=== PATIENT | male | born 1960 | race Caucasian/White ===

== ENCOUNTER → 2020-04-19 | Outpatient (CLI) | payer OTHER ==
[2020-04-20 09:06] LABS: RUBEOLA (MEASLES) IGG >300.0 AU/mL (Immune >16.4)
== END | disposition home or self-care (01) ==
LOC: LABPV 09:41
PROVIDERS: ATTEND Internal Medicine
DX: Z02.1 Encounter for pre-employment examination (principal)
CPT/HCPCS: 86706; 86735; 86762; 86765; 86787

== ENCOUNTER 2021-02-20 17:34 | Emergency (ER) | payer MEDICAID ==
[~2021-02-20] VITALS: Ht 170.2 cm; Wt 59.1 kg
[2021-02-20 18:50] LABS: BASOPHILS % (AUTO) 2.5 % (0.0-2.0); EOSINOPHILS % (AUTO) 6.5 % (1.0-6.0); HEMOGLOBIN 8.7 g/dL (13.5-17.5); LYMPHOCYTES # (AUTO) 1.2 K/uL (1.0-4.8); LYMPHOCYTES % (AUTO) 24.2 % (22.0-44.0); MEAN CORPUSCULAR HEMOGLOBIN 27.6 pg (26.0-34.0); MEAN CORPUSCULAR HGB CONC 33.5 G/dL (31.0-37.0); MEAN CORPUSCULAR VOLUME 83 fL (80-100); MONOCYTES # (AUTO) 0.5 K/uL (0.1-1.0); MONOCYTES % (AUTO) 9.8 % (2.0-9.0); NEUTROPHILS # (AUTO) 2.9 K/uL (1.8-7.7); PLATELET COUNT (AUTO) 258 K/uL (150-450); RED BLOOD CELL COUNT(AUTO) 3.15 MIL/uL (4.50-5.90); RED CELL DISTRIBUTION WIDTH 17.2 % (11.5-14.5)
[2021-02-20 19:14] LABS: CARBON DIOXIDE 30 mmol/L (22-29); CHLORIDE 85 mmol/L (98-107); CREATININE 0.69 mg/dL (0.60-1.30); GLOMERULAR FILTR. RATE CALC > 60 mL/min (>60); GLUCOSE,RANDOM 99 mg/dL (70-110); UREA NITROGEN, BLOOD 5 mg/dL (7-18)
[2021-02-20 19:15] LABS: ALANINE AMINOTRANSFERASE 14 U/L (12-78); ALBUMIN 3.2 g/dL (3.4-5.0); ALKALINE PHOSPHATASE 77 U/L (46-116); ASPARTATE AMINOTRANSFERASE 17 U/L (15-37); BILIRUBIN,TOTAL 0.2 mg/dL (0.1-1.0); CALCIUM, TOTAL 8.1 mg/dL (8.8-10.5); LIPASE 108 U/L (73-393); TOTAL PROTEIN, SERUM 6.2 g/dL (6.4-8.2)
[2021-02-20 19:29] VITALS: BP 140/78
[2021-02-20 19:48] LABS: POTASSIUM 4.5 mmol/L (3.5-5.1)
[2021-02-20 19:52] LABS: ANION GAP 3 mmol/L (8-16); SODIUM SERUM 118 mmol/L (136-145)
[2021-02-20 20:18] LABS: % IRON SATURATION 5.1 % (30-44)
[2021-02-20 20:29] LABS: FREE T4 (FREE THYROXINE) 1.05 ng/dL (0.76-1.46)
== END 2021-02-20 20:13 | disposition admitted as inpatient to this hospital (09) ==
LOC: EMS 17:36
DX: D64.9 Anemia, unspecified (principal); R00.2 Palpitations; E87.1 Hypo-osmolality and hyponatremia; F17.210 Nicotine dependence, cigarettes, uncomplicated
CPT/HCPCS: 71045; 80053; 83540; 83550; 83690; 84439; 84443; 84484; 85025; 93005; 99285; 36415-L1; 36415-TC

== ENCOUNTER 2021-02-23 16:21 | Inpatient (IN) | payer OTHER, MEDICAID ==
[~2021-02-23] VITALS: Ht 177.8 cm; Wt 76.0 kg
[2021-02-23] MEDS ORDERED: ONDANSETRON HCL 4 MG/2 ML VIAL IVP PRN (17:30)
[2021-02-23] MEDS ORDERED: SODIUM CHLORIDE 0.9% 1,000 ML IV ONE (17:30)
[2021-02-23] MEDS ORDERED: 0.9% SODIUM CHLORIDE 10 ML SYRINGE IVP PRN (17:30)
[2021-02-23] MEDS ORDERED: MAGNESIUM HYDROXIDE SUSPENSION 30 ML UDCUP PO PRN (17:30)
[2021-02-23] MEDS ORDERED: ACETAMINOPHEN 325 MG TABLET PO PRN ×2 (17:30)
[2021-02-23 20:32] VITALS: BP 141/91
[2021-02-23] MEDS: HEPARIN SODIUM,PORCINE 5,000 UNITS/ML VIAL SQ SCH (23:45)
[2021-02-24 04:43] VITALS: BP 135/81
[2021-02-24 07:06] LABS: ANION GAP 2 mmol/L (8-16); CALCIUM, TOTAL 8.7 mg/dL (8.8-10.5); CARBON DIOXIDE 32 mmol/L (22-29); CHLORIDE 92 mmol/L (98-107); CREATININE 0.62 mg/dL (0.60-1.30); GLOMERULAR FILTR. RATE CALC > 60 mL/min (>60); GLUCOSE,RANDOM 83 mg/dL (70-110); POTASSIUM 4.6 mmol/L (3.5-5.1); SODIUM SERUM 126 mmol/L (136-145); UREA NITROGEN, BLOOD 5 mg/dL (7-18)
[2021-02-24 08:16] VITALS: BP 156/82
[2021-02-24] MEDS: HEPARIN SODIUM,PORCINE 5,000 UNITS/ML VIAL SQ SCH ×2 (08:33→16:06)
[2021-02-24] MEDS: FAMOTIDINE 20 MG TABLET PO SCH (08:33)
[2021-02-24] MEDS: TOLVAPTAN 15 MG TABLET PO SCH (11:03)
[2021-02-24 15:40] LABS: ANION GAP 4 mmol/L (8-16); CALCIUM, TOTAL 8.4 mg/dL (8.8-10.5); CARBON DIOXIDE 30 mmol/L (22-29); CHLORIDE 95 mmol/L (98-107); CREATININE 0.73 mg/dL (0.60-1.30); GLOMERULAR FILTR. RATE CALC > 60 mL/min (>60); GLUCOSE,RANDOM 87 mg/dL (70-110); POTASSIUM 4.3 mmol/L (3.5-5.1); SODIUM SERUM 129 mmol/L (136-145); UREA NITROGEN, BLOOD 7 mg/dL (7-18)
[2021-02-24 16:43] VITALS: BP 150/86
[2021-02-24 19:00] VITALS: BP 133/77
[2021-02-24] MEDS: METOPROLOL SUCCINATE 25 MG ER TABLET PO SCH (19:59)
[2021-02-25] MEDS: HEPARIN SODIUM,PORCINE 5,000 UNITS/ML VIAL SQ SCH ×2 (00:22→08:25)
[2021-02-25 04:50] VITALS: BP 147/71
[2021-02-25 08:19] VITALS: BP 149/80
[2021-02-25] MEDS: METOPROLOL SUCCINATE 25 MG ER TABLET PO SCH (08:25)
[2021-02-25] MEDS: FAMOTIDINE 20 MG TABLET PO SCH (08:25)
[2021-02-25] MEDS: TOLVAPTAN 15 MG TABLET PO SCH (08:26)
[2021-02-25] MEDS ORDERED: METO25XL PO (11:39)
== END 2021-02-25 13:00 | disposition home or self-care (01) | DRG 641 ==
LOC: EMS 16:25 → 6N 18:12
PROVIDERS: ADMIT Internal Medicine; ATTEND Internal Medicine
DX: E87.1 Hypo-osmolality and hyponatremia (principal); I10 Essential (primary) hypertension; F17.200 Nicotine dependence, unspecified, uncomplicated; J43.9 Emphysema, unspecified; Z98.84 Bariatric surgery status; Z88.8 Allergy status to other drugs, medicaments and biological substances
CPT/HCPCS: 71260; 80048; 83930; 83935; 84300; 93005; 99285; J1644; J7030

== ENCOUNTER → 2021-02-23 | Outpatient (CLI) | payer OTHER ==
[~2021-02-23] VITALS: Ht 175.3 cm; Wt 77.4 kg
[2021-02-23 11:56] VITALS: BP 149/85
[2021-02-23 12:36] LABS: BASOPHILS % (AUTO) 2.3 % (0.0-2.0); EOSINOPHILS % (AUTO) 3.5 % (1.0-6.0); HEMOGLOBIN 9.6 g/dL (13.5-17.5); LYMPHOCYTES # (AUTO) 1.3 K/uL (1.0-4.8); LYMPHOCYTES % (AUTO) 25.9 % (22.0-44.0); MEAN CORPUSCULAR HEMOGLOBIN 27.7 pg (26.0-34.0); MEAN CORPUSCULAR HGB CONC 33.1 G/dL (31.0-37.0); MEAN CORPUSCULAR VOLUME 84 fL (80-100); MONOCYTES # (AUTO) 0.5 K/uL (0.1-1.0); MONOCYTES % (AUTO) 10.4 % (2.0-9.0); NEUTROPHILS # (AUTO) 2.9 K/uL (1.8-7.7); NEUTROPHILS % (AUTO) 57.9 % (40.0-70.0); PLATELET COUNT (AUTO) 349 K/uL (150-450); RED BLOOD CELL COUNT(AUTO) 3.47 MIL/uL (4.50-5.90); RED CELL DISTRIBUTION WIDTH 17.6 % (11.5-14.5)
[2021-02-23 12:49] LABS: HEMOGLOBIN A1C 4.9 % (3.8-5.6)
[2021-02-23 12:58] LABS: ALANINE AMINOTRANSFERASE 15 U/L (12-78); ALBUMIN 3.5 g/dL (3.4-5.0); ALKALINE PHOSPHATASE 74 U/L (46-116); ANION GAP 4 mmol/L (8-16); ASPARTATE AMINOTRANSFERASE 17 U/L (15-37); BILIRUBIN,TOTAL 0.3 mg/dL (0.1-1.0); CALCIUM, TOTAL 8.5 mg/dL (8.8-10.5); CARBON DIOXIDE 30 mmol/L (22-29); CHLORIDE 88 mmol/L (98-107); CHOL/HDL RATIO 1.4 (4.2-7.3); CHOLESTEROL 112 mg/dL (131-200); CREATININE 0.65 mg/dL (0.60-1.30); GLOMERULAR FILTR. RATE CALC > 60 mL/min (>60); GLUCOSE,RANDOM 89 mg/dL (70-110); HDL CHOLESTEROL 81 mg/dL (40-60); LDL CHOL (CALC.) 13 mg/dL (0-130); POTASSIUM 5.2 mmol/L (3.5-5.1); TOTAL PROTEIN, SERUM 7.1 g/dL (6.4-8.2); TRIGLYCERIDES 91 mg/dL (15-150); UREA NITROGEN, BLOOD 7 mg/dL (7-18)
[2021-02-23 13:15] LABS: APPEARANCE,URINE CLEAR (CLEAR); BILIRUBIN,URINE NEGATIVE (NEGATIVE); GLUCOSE, URINE (UA) NEGATIVE (NEGATIVE); KETONES,URINE NEGATIVE (NEGATIVE); LEUKOCYTE ESTERASE ,URINE NEGATIVE (NEGATIVE); NITRATE,URINE NEGATIVE (NEGATIVE); OCCULT BLOOD,URINE TRACE (NEGATIVE); PROTEIN,URINE NEGATIVE (NEGATIVE); UROBILINOGEN,URINE 0.2 mg/dL (<=1.0)
[2021-02-23 13:19] LABS: SODIUM,URINE RANDOM 54 mmol/l (20-110)
[2021-02-23 13:32] LABS: BACTERIA,URINE None Seen /HPF (None Seen); RBC,URINE None Seen /HPF (0-2); WBC,URINE None Seen /HPF (0-5)
[2021-02-23 13:56] LABS: SODIUM SERUM 122 mmol/L (136-145)
== END | disposition home or self-care (01) ==
LOC: SRCNTR 10:58
PROVIDERS: ATTEND Hospitalist
DX: D64.9 Anemia, unspecified (principal); I49.9 Cardiac arrhythmia, unspecified; E87.1 Hypo-osmolality and hyponatremia; R53.1 Weakness
CPT/HCPCS: 36415; 80053; 80061; 81001; 83036; 83935; 84300; 85025; G0463

== ENCOUNTER 2021-03-03 12:56 | Inpatient (IN) | payer OTHER, MEDICAID ==
[~2021-03-03] VITALS: Ht 175.3 cm; Wt 77.3 kg
[~2021-03-03 12:56] MED LIST: METO25XL PO
[2021-03-03] MEDS ORDERED: MethylPREDNISolone SOD SUCC 125 MG/2 ML VIAL IVP ONE (13:30)
[2021-03-03] MEDS ORDERED: ALBUTEROL SULFATE 2.5 MG/0.5 ML NEB SOLUTION NEB ONE (13:30)
[2021-03-03] MEDS ORDERED: IPRATROPIUM BROMIDE 0.5 MG/2.5 ML NEB SOLUTION NEB ONE (13:30)
[2021-03-03 13:34] LABS: BASOPHILS % (AUTO) 1.6 % (0.0-2.0); EOSINOPHILS % (AUTO) 2.4 % (1.0-6.0); HEMATOCRIT 27.6 % (41-53); LYMPHOCYTES # (AUTO) 0.7 K/uL (1.0-4.8); LYMPHOCYTES % (AUTO) 15.8 % (22.0-44.0); MEAN CORPUSCULAR HEMOGLOBIN 26.9 pg (26.0-34.0); MEAN CORPUSCULAR HGB CONC 32.4 G/dL (31.0-37.0); MEAN CORPUSCULAR VOLUME 83 fL (80-100); MONOCYTES # (AUTO) 0.4 K/uL (0.1-1.0); NEUTROPHILS # (AUTO) 2.9 K/uL (1.8-7.7); NEUTROPHILS % (AUTO) 70.2 % (40.0-70.0); PLATELET COUNT (AUTO) 251 K/uL (150-450); RED BLOOD CELL COUNT(AUTO) 3.33 MIL/uL (4.50-5.90); RED CELL DISTRIBUTION WIDTH 16.8 % (11.5-14.5)
[2021-03-03 13:50] LABS: ALANINE AMINOTRANSFERASE 13 U/L (12-78); ALBUMIN 3.4 g/dL (3.4-5.0); ALKALINE PHOSPHATASE 75 U/L (46-116); ANION GAP 6 mmol/L (8-16); ASPARTATE AMINOTRANSFERASE 19 U/L (15-37); BILIRUBIN,TOTAL 0.4 mg/dL (0.1-1.0); CALCIUM, TOTAL 8.3 mg/dL (8.8-10.5); CARBON DIOXIDE 30 mmol/L (22-29); CHLORIDE 85 mmol/L (98-107); CREATININE 0.77 mg/dL (0.60-1.30); GLOMERULAR FILTR. RATE CALC > 60 mL/min (>60); GLUCOSE,RANDOM 113 mg/dL (70-110); POTASSIUM 4.2 mmol/L (3.5-5.1); TOTAL PROTEIN, SERUM 6.4 g/dL (6.4-8.2); UREA NITROGEN, BLOOD 3 mg/dL (7-18)
[2021-03-03 13:54] LABS: SODIUM SERUM 121 mmol/L (136-145)
[2021-03-03] MEDS ORDERED: SODIUM CHLORIDE 0.9% 1,000 ML IV ONE (14:00)
[2021-03-03 14:07] LABS: B-TYPE NATRIURETIC PEPTIDE 108 pg/mL (0-100)
[2021-03-03 14:32] LABS: COVID AG,FIA SOURCE NASAL SWAB
[2021-03-03] MEDS ORDERED: SODIUM CHLORIDE 3% 500 ML IV ONE (15:30)
[2021-03-03] MEDS ORDERED: DEXTROSE 50%-WATER 25 GM/50 ML SYRINGE IVP PRN (16:15)
[2021-03-03] MEDS ORDERED: ONDANSETRON HCL 4 MG/2 ML VIAL IVP PRN (16:15)
[2021-03-03] MEDS ORDERED: ACETAMINOPHEN 325 MG TABLET PO PRN (16:15)
[2021-03-03] MEDS ORDERED: 0.9% SODIUM CHLORIDE 5 ML NEB SOLUTION NEB ONE (17:27)
[2021-03-03] MEDS: ALBUTEROL SULFATE 2.5 MG/0.5 ML NEB SOLUTION NEB PRN (17:28)
[2021-03-03] MEDS: MethylPREDNISolone SOD SUCC 125 MG/2 ML VIAL IVP SCH ×2 (17:29→18:05)
[2021-03-03 18:37] VITALS: BP 142/68
[2021-03-03 19:49] VITALS: BP 140/67
[2021-03-03] MEDS: DOCUSATE SODIUM 100 MG CAPSULE PO SCH (20:17)
[2021-03-03] MEDS: INSULIN LISPRO 100 UNITS/ML SQ PRN (20:17)
[2021-03-03 21:03] LABS: ANION GAP 11 mmol/L (8-16); CALCIUM, TOTAL 8.7 mg/dL (8.8-10.5); CARBON DIOXIDE 24 mmol/L (22-29); CHLORIDE 90 mmol/L (98-107); GLOMERULAR FILTR. RATE CALC > 60 mL/min (>60); GLUCOSE,RANDOM 160 mg/dL (70-110); POTASSIUM 4.3 mmol/L (3.5-5.1); SODIUM SERUM 125 mmol/L (136-145); UREA NITROGEN, BLOOD 4 mg/dL (7-18)
[2021-03-03] MEDS: HEPARIN SODIUM,PORCINE 5,000 UNITS/ML VIAL SQ SCH (23:52)
[2021-03-04] MEDS ORDERED: 0.9% SODIUM CHLORIDE 5 ML NEB SOLUTION NEB ONE ×3 (00:21→21:13)
[2021-03-04] MEDS: ALBUTEROL SULFATE 2.5 MG/0.5 ML NEB SOLUTION NEB PRN ×2 (00:25→04:12)
[2021-03-04 04:10] VITALS: BP 146/70
[2021-03-04] MEDS: MethylPREDNISolone SOD SUCC 125 MG/2 ML VIAL IVP SCH ×2 (05:46→11:24)
[2021-03-04] MEDS: INSULIN LISPRO 100 UNITS/ML SQ PRN (05:47)
[2021-03-04 05:52] LABS: GLUCOMETER DEV NAME(LOC) 6N.1; GLUCOSE,POINT OF CARE 163 MG/DL (70-110)
[2021-03-04 08:16] VITALS: BP 154/86
[2021-03-04] MEDS: FAMOTIDINE 20 MG TABLET PO SCH (08:40)
[2021-03-04] MEDS: DOCUSATE SODIUM 100 MG CAPSULE PO SCH ×2 (08:41→21:12)
[2021-03-04] MEDS: HEPARIN SODIUM,PORCINE 5,000 UNITS/ML VIAL SQ SCH ×2 (08:41→16:37)
[2021-03-04] MEDS: METOPROLOL SUCCINATE 25 MG ER TABLET PO SCH ×2 (10:19→21:12)
[2021-03-04 10:25] VITALS: BP 143/77
[2021-03-04 10:48] LABS: ANION GAP 7 mmol/L (8-16); CALCIUM, TOTAL 9.1 mg/dL (8.8-10.5); CARBON DIOXIDE 30 mmol/L (22-29); CHLORIDE 93 mmol/L (98-107); CREATININE 1.03 mg/dL (0.60-1.30); GLOMERULAR FILTR. RATE CALC > 60 mL/min (>60); GLUCOSE,RANDOM 148 mg/dL (70-110); POTASSIUM 4.2 mmol/L (3.5-5.1); SODIUM SERUM 130 mmol/L (136-145); UREA NITROGEN, BLOOD 6 mg/dL (7-18)
[2021-03-04] MEDS ORDERED: IOHEXOL 350 MG/ML 100 ML VIAL ONE (13:45)
[2021-03-04] MEDS ORDERED: BARIUM SULFATE 0.1% SUSPENSION 450 ML BOTTLE ONE (13:46)
[2021-03-04] MEDS ORDERED: SODIUM CHLORIDE 0.9% 100 ML ONE (13:46)
[2021-03-04 15:34] VITALS: BP 149/84
[2021-03-04 20:18] LABS: GLUCOMETER DEV NAME(LOC) 6S.1; GLUCOSE,POINT OF CARE 130 MG/DL (70-110)
[2021-03-04 20:18] LABS: GLUCOMETER DEV NAME(LOC) 6S.1; GLUCOSE,POINT OF CARE 136 MG/DL (70-110)
[2021-03-04 20:34] VITALS: BP 146/82
[2021-03-04] MEDS: CALCIUM CARBONATE 500 MG CHEWABLE TABLET CHEW PRN (21:12)
[2021-03-04 23:41] LABS: GLUCOMETER DEV NAME(LOC) 6N.1; GLUCOSE,POINT OF CARE 211 MG/DL (70-110)
[2021-03-04 23:41] LABS: GLUCOMETER DEV NAME(LOC) 6N.1; GLUCOSE,POINT OF CARE 124 MG/DL (70-110)
[2021-03-05] MEDS ORDERED: PANTOPRAZOLE SODIUM 40 MG DR TABLET PO ONE (00:45)
[2021-03-05] MEDS: HEPARIN SODIUM,PORCINE 5,000 UNITS/ML VIAL SQ SCH ×4 (00:47→23:25)
[2021-03-05 04:48] VITALS: BP 152/84
[2021-03-05 07:08] LABS: ANION GAP 4 mmol/L (8-16); CALCIUM, TOTAL 9.6 mg/dL (8.8-10.5); CARBON DIOXIDE 32 mmol/L (22-29); CHLORIDE 96 mmol/L (98-107); CREATININE 0.76 mg/dL (0.60-1.30); GLOMERULAR FILTR. RATE CALC > 60 mL/min (>60); GLUCOSE,RANDOM 100 mg/dL (70-110); POTASSIUM 4.7 mmol/L (3.5-5.1); SODIUM SERUM 132 mmol/L (136-145); UREA NITROGEN, BLOOD 9 mg/dL (7-18)
[2021-03-05] MEDS: FAMOTIDINE 20 MG TABLET PO SCH (08:13)
[2021-03-05] MEDS: PredniSONE 20 MG TABLET PO SCH (08:13)
[2021-03-05] MEDS: DOCUSATE SODIUM 100 MG CAPSULE PO SCH ×2 (08:13→21:03)
[2021-03-05] MEDS: PANTOPRAZOLE SODIUM 40 MG DR TABLET PO SCH ×2 (08:13→21:03)
[2021-03-05] MEDS: METOPROLOL SUCCINATE 25 MG ER TABLET PO SCH ×2 (08:14→21:03)
[2021-03-05 08:26] VITALS: BP 150/85
[2021-03-05] MEDS ORDERED: 0.9% SODIUM CHLORIDE 5 ML NEB SOLUTION NEB ONE ×2 (09:17→15:19)
[2021-03-05] MEDS: ALBUTEROL SULFATE 2.5 MG/0.5 ML NEB SOLUTION NEB PRN ×2 (09:18→15:28)
[2021-03-05] MEDS: CALCIUM CARBONATE 500 MG CHEWABLE TABLET CHEW PRN (11:41)
[2021-03-05 15:18] VITALS: BP 134/67
[2021-03-05 17:48] LABS: APPEARANCE,URINE CLEAR (CLEAR); BILIRUBIN,URINE NEGATIVE (NEGATIVE); GLUCOSE, URINE (UA) NEGATIVE (NEGATIVE); KETONES,URINE NEGATIVE (NEGATIVE); LEUKOCYTE ESTERASE ,URINE NEGATIVE (NEGATIVE); NITRATE,URINE NEGATIVE (NEGATIVE); OCCULT BLOOD,URINE NEGATIVE (NEGATIVE); PROTEIN,URINE NEGATIVE (NEGATIVE); UROBILINOGEN,URINE 0.2 mg/dL (<=1.0)
[2021-03-05 18:19] LABS: UREA NITROGEN,URINE RANDOM 555 mg/dL (350-1000)
[2021-03-05 20:26] VITALS: BP 140/77
[2021-03-05 21:30] LABS: GLUCOMETER DEV NAME(LOC) 6N.1; GLUCOSE,POINT OF CARE 105 MG/DL (70-110)
[2021-03-05 21:31] LABS: GLUCOMETER DEV NAME(LOC) 6N.1; GLUCOSE,POINT OF CARE 106 MG/DL (70-110)
[2021-03-05 21:31] LABS: GLUCOMETER DEV NAME(LOC) 6S.1; GLUCOSE,POINT OF CARE 129 MG/DL (70-110)
[2021-03-05 21:31] LABS: GLUCOMETER DEV NAME(LOC) 6S.1; GLUCOSE,POINT OF CARE 129 MG/DL (70-110)
[2021-03-06 05:45] VITALS: BP 143/60
[2021-03-06 06:24] LABS: GLUCOMETER DEV NAME(LOC) 6S.1; GLUCOSE,POINT OF CARE 78 MG/DL (70-110)
[2021-03-06 07:00] LABS: ANION GAP 5 mmol/L (8-16); CALCIUM, TOTAL 8.6 mg/dL (8.8-10.5); CARBON DIOXIDE 32 mmol/L (22-29); CHLORIDE 100 mmol/L (98-107); CREATININE 0.94 mg/dL (0.60-1.30); GLOMERULAR FILTR. RATE CALC > 60 mL/min (>60); GLUCOSE,RANDOM 57 mg/dL (70-110); SODIUM SERUM 137 mmol/L (136-145); THYROID STIMULATING HORMONE 0.87 uIU/mL (0.36-3.74); UREA NITROGEN, BLOOD 13 mg/dL (7-18)
[2021-03-06 08:02] VITALS: BP 142/84
[2021-03-06] MEDS: FAMOTIDINE 20 MG TABLET PO SCH (08:49)
[2021-03-06] MEDS: DOCUSATE SODIUM 100 MG CAPSULE PO SCH (08:49)
[2021-03-06] MEDS: PANTOPRAZOLE SODIUM 40 MG DR TABLET PO SCH (08:49)
[2021-03-06] MEDS: METOPROLOL SUCCINATE 25 MG ER TABLET PO SCH (08:49)
[2021-03-06] MEDS: PredniSONE 20 MG TABLET PO SCH (08:49)
[2021-03-06] MEDS: HEPARIN SODIUM,PORCINE 5,000 UNITS/ML VIAL SQ SCH (08:54)
[2021-03-06] MEDS ORDERED: 0.9% SODIUM CHLORIDE 5 ML NEB SOLUTION NEB ONE (10:00)
[2021-03-06] MEDS: ALBUTEROL SULFATE 2.5 MG/0.5 ML NEB SOLUTION NEB PRN (10:06)
[2021-03-06] MEDS ORDERED: ALBUTEROL SULFATE/IPRATROPIUM 100-20 MCG/SPRAY 4 GM INHALER IH SCH (12:00)
[2021-03-06 12:16] LABS: GLUCOMETER DEV NAME(LOC) 6S.1; GLUCOSE,POINT OF CARE 97 MG/DL (70-110)
[2021-03-06] MEDS ORDERED: FAMO20 PO (12:46)
[2021-03-06] MEDS ORDERED: PRED10 PO (12:50)
[2021-03-06] MEDS ORDERED: IPRA4AER IH (12:50)
== END 2021-03-06 13:40 | disposition home or self-care (01) | DRG 191 ==
LOC: EMS 13:00 → EEVIPCON 16:51 → 6N 16:51 → EMS 18:41 → 6S 03-04 00:11
PROVIDERS: ADMIT Internal Medicine; ATTEND Internal Medicine
DX: J44.1 Chronic obstructive pulmonary disease with (acute) exacerbation (principal); E87.1 Hypo-osmolality and hyponatremia; I10 Essential (primary) hypertension; Z20.822 Contact with and (suspected) exposure to COVID-19; Z79.899 Other long term (current) drug therapy; Z98.84 Bariatric surgery status; Z88.8 Allergy status to other drugs, medicaments and biological substances; Z87.891 Personal history of nicotine dependence
CPT/HCPCS: 71045; 74177; 80048; 80053; 81003; 82533; 82962; 83735; 83880; 83935; 84133; 84295; 84443; 84484; 84540; 85025; 93005; 94640; 99285; G0378; J1644; J2930; J7030; J7050; Q9967; 36415-L1; 36415-TC; J7613

== ENCOUNTER → 2021-03-16 | Outpatient (CLI) | payer OTHER, MEDICAID ==
[~2021-03-16] MED LIST changes: +FAMO20 PO; +IPRA4AER IH; +PRED10 PO
[2021-03-16 13:53] LABS: ANION GAP 6 mmol/L (8-16); CALCIUM, TOTAL 8.5 mg/dL (8.8-10.5); CARBON DIOXIDE 29 mmol/L (22-29); CHLORIDE 100 mmol/L (98-107); CREATININE 0.78 mg/dL (0.60-1.30); GLOMERULAR FILTR. RATE CALC > 60 mL/min (>60); GLUCOSE,RANDOM 73 mg/dL (70-110); SODIUM SERUM 135 mmol/L (136-145); UREA NITROGEN, BLOOD 12 mg/dL (7-18)
== END | disposition home or self-care (01) ==
LOC: LABMN 13:24
PROVIDERS: ATTEND Hospitalist
DX: E87.1 Hypo-osmolality and hyponatremia (principal)
CPT/HCPCS: 80048

== ENCOUNTER → 2021-04-13 | Outpatient (CLI) | payer OTHER | END | disposition home or self-care (01) | LOC: RADPV 09:02 | PROVIDERS: ATTEND Internal Medicine Cardiovascular Disease | DX: I35.8 Other nonrheumatic aortic valve disorders (principal); I50.1 Left ventricular failure, unspecified | CPT/HCPCS: 93306 ==

== ENCOUNTER → 2021-04-21 | Outpatient (CLI) | payer MEDICAID, OTHER ==
[~2021-04-21] VITALS: Ht 170.2 cm; Wt 87.0 kg
[~2021-04-21] MED LIST changes: +ALBU8.5H8 IH; +FLUT1AER IH; +FURO40 PO; +OMEP20 PO; +POTA8TAB71 PO
[2021-04-21 10:11] VITALS: BP 139/72
== END | disposition home or self-care (01) ==
LOC: SRCNTR 09:21
PROVIDERS: ATTEND Hospitalist
DX: I10 Essential (primary) hypertension (principal); J44.9 Chronic obstructive pulmonary disease, unspecified; E87.1 Hypo-osmolality and hyponatremia; F17.210 Nicotine dependence, cigarettes, uncomplicated; R22.43 Localized swelling, mass and lump, lower limb, bilateral
CPT/HCPCS: G0463

== ENCOUNTER → 2021-04-28 | Outpatient (CLI) | payer OTHER ==
[~2021-04-28] VITALS: Ht 170.2 cm; Wt 85.0 kg
[~2021-04-28] MED LIST changes: -FAMO20 PO; -PRED10 PO
[2021-04-28 10:45] VITALS: BP 126/70
== END | disposition home or self-care (01) ==
LOC: SRCNTR 10:29
PROVIDERS: ATTEND Internal Medicine Critical Care Medicine
DX: J44.1 Chronic obstructive pulmonary disease with (acute) exacerbation (principal); I48.0 Paroxysmal atrial fibrillation; Z79.899 Other long term (current) drug therapy; Z88.6 Allergy status to analgesic agent; Z88.8 Allergy status to other drugs, medicaments and biological substances
CPT/HCPCS: G0463

== ENCOUNTER → 2021-05-26 | Outpatient (CLI) | payer OTHER ==
[~2021-05-26] VITALS: Ht 170.2 cm; Wt 86.0 kg
[~2021-05-26] MED LIST changes: +FAMO20 PO; +PRED10 PO
[2021-05-26 09:50] VITALS: BP 124/64
== END | disposition home or self-care (01) ==
LOC: SRCNTR 08:47
PROVIDERS: ATTEND Hospitalist
DX: I10 Essential (primary) hypertension (principal); J44.9 Chronic obstructive pulmonary disease, unspecified; R22.43 Localized swelling, mass and lump, lower limb, bilateral
CPT/HCPCS: G0463

== ENCOUNTER 2021-06-19 18:21 | Inpatient (IN) | payer OTHER ==
[~2021-06-19] VITALS: Ht 177.8 cm; Wt 86.7 kg
[~2021-06-19 18:21] MED LIST changes: -FAMO20 PO; -PRED10 PO
[2021-06-19 19:13] LABS: COVID AG,FIA SOURCE NASAL SWAB
[2021-06-19 19:34] LABS: BASOPHILS % (AUTO) 1.3 % (0.0-2.0); HEMATOCRIT 22.9 % (41-53); HEMOGLOBIN 7.5 g/dL (13.5-17.5); LYMPHOCYTES # (AUTO) 0.9 K/uL (1.0-4.8); LYMPHOCYTES % (AUTO) 16.8 % (22.0-44.0); MEAN CORPUSCULAR HGB CONC 32.7 G/dL (31.0-37.0); MEAN CORPUSCULAR VOLUME 83 fL (80-100); MONOCYTES # (AUTO) 0.5 K/uL (0.1-1.0); MONOCYTES % (AUTO) 10.4 % (2.0-9.0); NEUTROPHILS # (AUTO) 3.6 K/uL (1.8-7.7); NEUTROPHILS % (AUTO) 68.5 % (40.0-70.0); PLATELET COUNT (AUTO) 233 K/uL (150-450); RED BLOOD CELL COUNT(AUTO) 2.77 MIL/uL (4.50-5.90); RED CELL DISTRIBUTION WIDTH 21.5 % (11.5-14.5)
[2021-06-19 19:48] LABS: B-TYPE NATRIURETIC PEPTIDE 107 pg/mL (0-100)
[2021-06-19 19:54] LABS: ALANINE AMINOTRANSFERASE 13 U/L (12-78); ALKALINE PHOSPHATASE 78 U/L (46-116); ASPARTATE AMINOTRANSFERASE 15 U/L (15-37); BILIRUBIN,TOTAL 0.3 mg/dL (0.1-1.0); CALCIUM, TOTAL 8.5 mg/dL (8.8-10.5); CARBON DIOXIDE 27 mmol/L (22-29); CHLORIDE 86 mmol/L (98-107); CREATININE 0.85 mg/dL (0.60-1.30); GLOMERULAR FILTR. RATE CALC > 60 mL/min (>60); GLUCOSE,RANDOM 87 mg/dL (70-110); POTASSIUM 3.6 mmol/L (3.5-5.1); UREA NITROGEN, BLOOD 7 mg/dL (7-18)
[2021-06-19 19:55] LABS: ALBUMIN 2.8 g/dL (3.4-5.0); CREATINE KINASE, TOTAL ONLY 212 U/L (39-308)
[2021-06-19 19:56] LABS: ANION GAP 7 mmol/L (8-16); SODIUM SERUM 120 mmol/L (136-145)
[2021-06-19] MEDS ORDERED: ONDANSETRON HCL 4 MG/2 ML VIAL IVP PRN (20:30)
[2021-06-19] MEDS ORDERED: ACETAMINOPHEN 325 MG TABLET PO PRN (20:30)
[2021-06-19] MEDS ORDERED: IOHEXOL 350 MG/ML 100 ML VIAL ONE (20:44)
[2021-06-19] MEDS ORDERED: SODIUM CHLORIDE 0.9% 100 ML ONE (20:44)
[2021-06-19 20:59] LABS: RETICULOCYTE % (AUTO) 2.8 % (0.5-2.3)
[2021-06-19 21:05] LABS: % IRON SATURATION 7.6 % (30-44)
[2021-06-19] MEDS: ALBUTEROL SULFATE HFA 90 MCG/PUFF 8 GM INHALER IH SCH (21:18)
[2021-06-19] MEDS ORDERED: MethylPREDNISolone SOD SUCC 125 MG/2 ML VIAL IVP ONE (22:15)
[2021-06-19] MEDS ORDERED: AZITHROMYCIN 500 MG TABLET PO ONE (22:15)
[2021-06-19] MEDS: HEPARIN SODIUM,PORCINE 5,000 UNITS/ML VIAL SQ SCH (23:23)
[2021-06-19] MEDS: IPRATROPIUM BROMIDE 0.5 MG/2.5 ML NEB SOLUTION NEB PRN (23:42)
[2021-06-19] MEDS: ALBUTEROL SULFATE 2.5 MG/0.5 ML NEB SOLUTION NEB PRN (23:42)
[2021-06-19] MEDS: BENZONATATE 100 MG CAPSULE PO PRN (23:58)
[2021-06-19] MEDS: SPIRONOLACTONE 25 MG TABLET PO SCH (23:58)
[2021-06-20 01:40] VITALS: BP 130/74
[2021-06-20 06:14] VITALS: BP 144/81
[2021-06-20 07:30] LABS: BASOPHILS % (AUTO) 0.4 % (0.0-2.0); EOSINOPHILS % (AUTO) 0.2 % (1.0-6.0); HEMATOCRIT 23.8 % (41-53); HEMOGLOBIN 7.9 g/dL (13.5-17.5); LYMPHOCYTES # (AUTO) 0.1 K/uL (1.0-4.8); LYMPHOCYTES % (AUTO) 5.8 % (22.0-44.0); MEAN CORPUSCULAR HEMOGLOBIN 27.3 pg (26.0-34.0); MEAN CORPUSCULAR HGB CONC 33.2 G/dL (31.0-37.0); MEAN CORPUSCULAR VOLUME 82 fL (80-100); MONOCYTES # (AUTO) 0.1 K/uL (0.1-1.0); MONOCYTES % (AUTO) 2.8 % (2.0-9.0); NEUTROPHILS # (AUTO) 2.3 K/uL (1.8-7.7); PLATELET COUNT (AUTO) 230 K/uL (150-450); RED BLOOD CELL COUNT(AUTO) 2.89 MIL/uL (4.50-5.90); RED CELL DISTRIBUTION WIDTH 21.5 % (11.5-14.5)
[2021-06-20 07:41] LABS: NEUTROPHILS % (AUTO) 90.8 % (40.0-70.0)
[2021-06-20 07:42] LABS: ANION GAP 9 mmol/L (8-16); CALCIUM, TOTAL 8.8 mg/dL (8.8-10.5); CARBON DIOXIDE 26 mmol/L (22-29); CHLORIDE 90 mmol/L (98-107); CREATININE 0.79 mg/dL (0.60-1.30); GLOMERULAR FILTR. RATE CALC > 60 mL/min (>60); GLUCOSE,RANDOM 115 mg/dL (70-110); POTASSIUM 4.2 mmol/L (3.5-5.1); SODIUM SERUM 125 mmol/L (136-145); UREA NITROGEN, BLOOD 6 mg/dL (7-18)
[2021-06-20 07:45] VITALS: BP 138/71
[2021-06-20] MEDS: SPIRONOLACTONE 25 MG TABLET PO SCH ×2 (08:36→20:17)
[2021-06-20] MEDS: PredniSONE 20 MG TABLET PO SCH (08:36)
[2021-06-20] MEDS: FLUTICASONE/VILANTEROL 100-25 MCG/INH INHALER [14] IH SCH (08:37)
[2021-06-20] MEDS: HEPARIN SODIUM,PORCINE 5,000 UNITS/ML VIAL SQ SCH ×3 (08:37→23:14)
[2021-06-20] MEDS: ALBUTEROL SULFATE HFA 90 MCG/PUFF 8 GM INHALER IH SCH ×3 (08:37→20:17)
[2021-06-20] MEDS: METOPROLOL SUCCINATE 25 MG ER TABLET PO SCH (08:39)
[2021-06-20] MEDS: OMEPRAZOLE 20 MG CAPSULE PO SCH (08:39)
[2021-06-20] MEDS: AZITHROMYCIN 250 MG TABLET PO SCH (08:49)
[2021-06-20] MEDS ORDERED: MethylPREDNISolone SOD SUCC 125 MG/2 ML VIAL IVP SCH (09:00)
[2021-06-20 13:00] VITALS: BP 136/80
[2021-06-20 15:20] VITALS: BP 128/73
[2021-06-20] MEDS: ALBUTEROL SULFATE 2.5 MG/0.5 ML NEB SOLUTION NEB PRN (15:47)
[2021-06-20] MEDS: IPRATROPIUM BROMIDE 0.5 MG/2.5 ML NEB SOLUTION NEB PRN (15:47)
[2021-06-20 20:16] VITALS: BP 110/68
[2021-06-20] MEDS: BENZONATATE 100 MG CAPSULE PO PRN (23:53)
[2021-06-21] MEDS: ALBUTEROL SULFATE 2.5 MG/0.5 ML NEB SOLUTION NEB PRN ×4 (00:03→20:42)
[2021-06-21 00:13] VITALS: BP 123/69
[2021-06-21 04:22] VITALS: BP 124/68
[2021-06-21 07:13] VITALS: BP 138/79
[2021-06-21 07:27] LABS: BASOPHILS % (AUTO) 0.3 % (0.0-2.0); EOSINOPHILS % (AUTO) 0.9 % (1.0-6.0); HEMATOCRIT 24.6 % (41-53); HEMOGLOBIN 8.1 g/dL (13.5-17.5); LYMPHOCYTES # (AUTO) 0.7 K/uL (1.0-4.8); LYMPHOCYTES % (AUTO) 15.3 % (22.0-44.0); MEAN CORPUSCULAR HEMOGLOBIN 27.3 pg (26.0-34.0); MEAN CORPUSCULAR HGB CONC 32.9 G/dL (31.0-37.0); MEAN CORPUSCULAR VOLUME 83 fL (80-100); MONOCYTES # (AUTO) 0.4 K/uL (0.1-1.0); MONOCYTES % (AUTO) 8.8 % (2.0-9.0); NEUTROPHILS # (AUTO) 3.4 K/uL (1.8-7.7); NEUTROPHILS % (AUTO) 74.7 % (40.0-70.0); PLATELET COUNT (AUTO) 254 K/uL (150-450); RED BLOOD CELL COUNT(AUTO) 2.97 MIL/uL (4.50-5.90); RED CELL DISTRIBUTION WIDTH 21.4 % (11.5-14.5)
[2021-06-21] MEDS: SPIRONOLACTONE 25 MG TABLET PO SCH ×2 (07:32→21:15)
[2021-06-21] MEDS: HEPARIN SODIUM,PORCINE 5,000 UNITS/ML VIAL SQ SCH ×2 (07:32→15:57)
[2021-06-21] MEDS: PredniSONE 20 MG TABLET PO SCH (07:32)
[2021-06-21] MEDS: OMEPRAZOLE 20 MG CAPSULE PO SCH (07:32)
[2021-06-21] MEDS: ALBUTEROL SULFATE HFA 90 MCG/PUFF 8 GM INHALER IH SCH ×3 (07:33→21:15)
[2021-06-21] MEDS: FLUTICASONE/VILANTEROL 100-25 MCG/INH INHALER [14] IH SCH (07:33)
[2021-06-21] MEDS: AZITHROMYCIN 250 MG TABLET PO SCH (07:33)
[2021-06-21] MEDS: METOPROLOL SUCCINATE 25 MG ER TABLET PO SCH (07:33)
[2021-06-21] MEDS: IPRATROPIUM BROMIDE 0.5 MG/2.5 ML NEB SOLUTION NEB PRN ×3 (07:52→20:42)
[2021-06-21 07:54] LABS: ANION GAP 6 mmol/L (8-16); CALCIUM, TOTAL 9.1 mg/dL (8.8-10.5); CARBON DIOXIDE 29 mmol/L (22-29); CHLORIDE 91 mmol/L (98-107); CREATININE 0.83 mg/dL (0.60-1.30); GLOMERULAR FILTR. RATE CALC > 60 mL/min (>60); POTASSIUM 4.1 mmol/L (3.5-5.1); SODIUM SERUM 126 mmol/L (136-145); THYROID STIMULATING HORMONE 0.36 uIU/mL (0.36-3.74); UREA NITROGEN, BLOOD 11 mg/dL (7-18)
[2021-06-21 08:05] LABS: GLUCOSE,RANDOM 77 mg/dL (70-110)
[2021-06-21 11:39] VITALS: BP 119/69
[2021-06-21 15:12] VITALS: BP 122/65
[2021-06-21] MEDS: SODIUM CHLORIDE 1 GM TABLET PO SCH ×2 (16:05→21:15)
[2021-06-21 19:46] VITALS: BP 116/68
[2021-06-22 00:16] VITALS: BP 141/76
[2021-06-22] MEDS: HEPARIN SODIUM,PORCINE 5,000 UNITS/ML VIAL SQ SCH ×2 (00:58→09:33)
[2021-06-22 04:24] VITALS: BP 138/81
[2021-06-22 07:20] VITALS: BP 128/80
[2021-06-22 07:43] LABS: ANION GAP 6 mmol/L (8-16); CALCIUM, TOTAL 8.6 mg/dL (8.8-10.5); CARBON DIOXIDE 28 mmol/L (22-29); CHLORIDE 97 mmol/L (98-107); CREATININE 0.83 mg/dL (0.60-1.30); GLOMERULAR FILTR. RATE CALC > 60 mL/min (>60); GLUCOSE,RANDOM 77 mg/dL (70-110); POTASSIUM 4.2 mmol/L (3.5-5.1); SODIUM SERUM 131 mmol/L (136-145); UREA NITROGEN, BLOOD 12 mg/dL (7-18)
[2021-06-22] MEDS ORDERED: PredniSONE 20 MG TABLET PO SCH (09:00)
[2021-06-22] MEDS: OMEPRAZOLE 20 MG CAPSULE PO SCH (09:33)
[2021-06-22] MEDS: SODIUM CHLORIDE 1 GM TABLET PO SCH (09:33)
[2021-06-22] MEDS: AZITHROMYCIN 250 MG TABLET PO SCH (09:34)
[2021-06-22] MEDS: METOPROLOL SUCCINATE 25 MG ER TABLET PO SCH (09:34)
[2021-06-22] MEDS: SPIRONOLACTONE 25 MG TABLET PO SCH (09:35)
[2021-06-22] MEDS: FLUTICASONE/VILANTEROL 100-25 MCG/INH INHALER [14] IH SCH (09:37)
[2021-06-22] MEDS: ALBUTEROL SULFATE HFA 90 MCG/PUFF 8 GM INHALER IH SCH (09:38)
[2021-06-22 11:13] VITALS: BP 124/68
[2021-06-22] MEDS: ALBUTEROL SULFATE 2.5 MG/0.5 ML NEB SOLUTION NEB PRN (12:56)
[2021-06-22] MEDS: IPRATROPIUM BROMIDE 0.5 MG/2.5 ML NEB SOLUTION NEB PRN (12:56)
[2021-06-22] MEDS ORDERED: PRED20 PO (13:21)
[2021-06-22] MEDS ORDERED: NACL1 PO ×2 (13:21→13:32)
[2021-06-22] MEDS ORDERED: SPIR-37 PO (13:21)
[2021-06-22] MEDS ORDERED: AZIT-84 PO (13:21)
[2021-06-22] MEDS ORDERED: BENZ-70 PO (13:21)
[2021-06-22] MEDS ORDERED: FURO40 PO (13:32)
[2021-06-22] MEDS ORDERED: IPRA4AER IH (13:32)
[2021-06-22] MEDS ORDERED: METO-558 PO (13:32)
[2021-06-22] MEDS ORDERED: FLUT1AER IH (13:32)
[2021-06-22] MEDS ORDERED: FURO20 PO (15:41)
== END 2021-06-22 14:55 | disposition home or self-care (01) | DRG 191 ==
LOC: EMS 18:23 → 5S 21:04
PROVIDERS: ADMIT Internal Medicine; ATTEND Internal Medicine
DX: J44.1 Chronic obstructive pulmonary disease with (acute) exacerbation (principal); E87.1 Hypo-osmolality and hyponatremia; S22.060A Wedge compression fracture of T7-T8 vertebra, initial encounter for closed fracture; J45.901 Unspecified asthma with (acute) exacerbation; D72.819 Decreased white blood cell count, unspecified; D64.9 Anemia, unspecified; E86.1 Hypovolemia; I48.0 Paroxysmal atrial fibrillation; F17.200 Nicotine dependence, unspecified, uncomplicated; K74.60 Unspecified cirrhosis of liver; Z20.822 Contact with and (suspected) exposure to COVID-19; K80.20 Calculus of gallbladder without cholecystitis without obstruction; M40.203 Unspecified kyphosis, cervicothoracic region; K75.81 Nonalcoholic steatohepatitis (NASH); S20.219A Contusion of unspecified front wall of thorax, initial encounter; W01.0XXA Fall on same level from slipping, tripping and stumbling without subsequent striking against object, initial encounter; Z79.899 Other long term (current) drug therapy; Z98.84 Bariatric surgery status; Y93.89 Activity, other specified; Y92.89 Other specified places as the place of occurrence of the external cause; Y99.8 Other external cause status; Z88.8 Allergy status to other drugs, medicaments and biological substances
CPT/HCPCS: 71046; 71275; 76705; 80048; 80053; 82533; 82550; 83540; 83550; 83735; 83880; 83930; 83935; 84100; 84300; 84443; 84484; 85025; 85045; 85379; 85610; 87040; 93005; 93970; 94640; 99285; J1644; J2930; J3535; J7050; Q9967; 36415-L1; 36415-TC; J7613

== ENCOUNTER 2021-07-06 21:58 | Inpatient (IN) | payer OTHER ==
[~2021-07-06] VITALS: Ht 177.8 cm; Wt 81.9 kg
[~2021-07-06 21:58] MED LIST changes: +AZIT-84 PO; +BENZ-70 PO; +FURO20 PO; -FURO40 PO; +METO-558 PO; +NACL1 PO; +PRED20 PO; +SPIR-37 PO
[2021-07-06] MEDS ORDERED: SODI100037 PO (22:34)
[2021-07-06] MEDS ORDERED: IPRATROPIUM BROMIDE 0.5 MG/2.5 ML NEB SOLUTION NEB ONE (22:45)
[2021-07-06] MEDS ORDERED: ALBUTEROL SULFATE 5 MG/ML 20 ML NEB SOLN [BULK] NEB ONE (22:45)
[2021-07-06] MEDS ORDERED: MethylPREDNISolone SOD SUCC 125 MG/2 ML VIAL IVP ONE (22:45)
[2021-07-06 23:14] LABS: BASOPHILS % (AUTO) 0.8 % (0.0-2.0); EOSINOPHILS % (AUTO) 2.1 % (1.0-6.0); HEMATOCRIT 27.4 % (41-53); HEMOGLOBIN 9.1 g/dL (13.5-17.5); LYMPHOCYTES # (AUTO) 0.9 K/uL (1.0-4.8); LYMPHOCYTES % (AUTO) 11.4 % (22.0-44.0); MEAN CORPUSCULAR HEMOGLOBIN 27.7 pg (26.0-34.0); MEAN CORPUSCULAR HGB CONC 33.1 G/dL (31.0-37.0); MEAN CORPUSCULAR VOLUME 84 fL (80-100); MONOCYTES # (AUTO) 0.5 K/uL (0.1-1.0); MONOCYTES % (AUTO) 6.2 % (2.0-9.0); NEUTROPHILS # (AUTO) 6.5 K/uL (1.8-7.7); NEUTROPHILS % (AUTO) 79.5 % (40.0-70.0); PLATELET COUNT (AUTO) 276 K/uL (150-450); RED BLOOD CELL COUNT(AUTO) 3.27 MIL/uL (4.50-5.90); RED CELL DISTRIBUTION WIDTH 21.4 % (11.5-14.5)
[2021-07-06] MEDS ORDERED: ACETAMINOPHEN 325 MG TABLET PO PRN (23:15)
[2021-07-06] MEDS ORDERED: OxyCODONE HCL/ACETAMINOPHEN 5-325 MG TABLET PO PRN (23:15)
[2021-07-06 23:23] LABS: COVID AG,FIA SOURCE NASAL SWAB
[2021-07-06 23:26] LABS: B-TYPE NATRIURETIC PEPTIDE 86 pg/mL (0-100)
[2021-07-06 23:31] LABS: ALANINE AMINOTRANSFERASE 14 U/L (12-78); ALBUMIN 3.3 g/dL (3.4-5.0); ALKALINE PHOSPHATASE 96 U/L (46-116); ANION GAP 6 mmol/L (8-16); ASPARTATE AMINOTRANSFERASE 14 U/L (15-37); BILIRUBIN,TOTAL 0.5 mg/dL (0.1-1.0); CALCIUM, TOTAL 8.8 mg/dL (8.8-10.5); CARBON DIOXIDE 26 mmol/L (22-29); CHLORIDE 84 mmol/L (98-107); CREATININE 0.88 mg/dL (0.60-1.30); GLOMERULAR FILTR. RATE CALC > 60 mL/min (>60); GLUCOSE,RANDOM 90 mg/dL (70-110); POTASSIUM 4.9 mmol/L (3.5-5.1); TOTAL PROTEIN, SERUM 6.5 g/dL (6.4-8.2); UREA NITROGEN, BLOOD 6 mg/dL (7-18)
[2021-07-06 23:33] LABS: SODIUM SERUM 116 mmol/L (136-145)
[2021-07-07] MEDS ORDERED: SODIUM CHLORIDE 0.9% 1,000 ML IV ONE
[2021-07-07] MEDS: HEPARIN SODIUM,PORCINE 5,000 UNITS/ML VIAL SQ SCH ×3 (00:20→17:22)
[2021-07-07 06:20] LABS: ANION GAP 7 mmol/L (8-16); CALCIUM, TOTAL 8.8 mg/dL (8.8-10.5); CARBON DIOXIDE 24 mmol/L (22-29); CHLORIDE 87 mmol/L (98-107); CREATININE 0.83 mg/dL (0.60-1.30); GLOMERULAR FILTR. RATE CALC > 60 mL/min (>60); GLUCOSE,RANDOM 136 mg/dL (70-110); POTASSIUM 4.5 mmol/L (3.5-5.1); UREA NITROGEN, BLOOD 7 mg/dL (7-18)
[2021-07-07 06:34] LABS: SODIUM SERUM 118 mmol/L (136-145)
[2021-07-07 06:47] VITALS: BP 108/73
[2021-07-07 07:12] VITALS: BP 115/60
[2021-07-07] MEDS: DOCUSATE SODIUM 100 MG CAPSULE PO SCH ×2 (08:31→20:27)
[2021-07-07] MEDS: FAMOTIDINE 20 MG TABLET PO SCH (08:31)
[2021-07-07] MEDS ORDERED: SODIUM CHLORIDE 1 GM TABLET PO SCH (09:00)
[2021-07-07] MEDS: ALBUTEROL SULFATE 2.5 MG/0.5 ML NEB SOLUTION NEB PRN ×3 (10:48→21:52)
[2021-07-07 11:37] VITALS: BP 100/55
[2021-07-07] MEDS ORDERED: SODIUM CHLORIDE 3% 500 ML IV ONE (12:00)
[2021-07-07] MEDS: FLUTICASONE/VILANTEROL 100-25 MCG/INH INHALER [14] IH SCH (13:29)
[2021-07-07 15:50] VITALS: BP 105/67
[2021-07-07 19:08] VITALS: BP 115/61
[2021-07-07] MEDS: CARVEDILOL 3.125 MG TABLET PO SCH (20:27)
[2021-07-07 21:36] LABS: APPEARANCE,URINE CLEAR (CLEAR); BILIRUBIN,URINE NEGATIVE (NEGATIVE); GLUCOSE, URINE (UA) 300-500 mg/dL (NEGATIVE); KETONES,URINE NEGATIVE (NEGATIVE); LEUKOCYTE ESTERASE ,URINE NEGATIVE (NEGATIVE); NITRATE,URINE NEGATIVE (NEGATIVE); OCCULT BLOOD,URINE NEGATIVE (NEGATIVE); PROTEIN,URINE NEGATIVE (NEGATIVE); SPECIFIC GRAVITIY, URINE 1.008 (1.003-1.030); UROBILINOGEN,URINE <=1.0 mg/dL (<=1.0)
[2021-07-07 21:49] LABS: BACTERIA,URINE None Seen /HPF (None Seen); RBC,URINE 0-2 /HPF (0-2); WBC,URINE None Seen /HPF (0-5)
[2021-07-07 23:37] VITALS: BP 123/65
[2021-07-08] MEDS: HEPARIN SODIUM,PORCINE 5,000 UNITS/ML VIAL SQ SCH ×4 (00:41→23:54)
[2021-07-08 03:36] VITALS: BP 130/67
[2021-07-08 05:51] LABS: ANION GAP 7 mmol/L (8-16); CARBON DIOXIDE 25 mmol/L (22-29); CHLORIDE 99 mmol/L (98-107); CREATININE 0.82 mg/dL (0.60-1.30); GLOMERULAR FILTR. RATE CALC > 60 mL/min (>60); GLUCOSE,RANDOM 88 mg/dL (70-110); PHOSPHORUS 4.5 mg/dL (2.5-4.9); POTASSIUM 4.5 mmol/L (3.5-5.1); SODIUM SERUM 131 mmol/L (136-145); UREA NITROGEN, BLOOD 9 mg/dL (7-18)
[2021-07-08 06:58] VITALS: BP 141/74
[2021-07-08] MEDS: FAMOTIDINE 20 MG TABLET PO SCH (08:20)
[2021-07-08] MEDS: CARVEDILOL 3.125 MG TABLET PO SCH ×2 (08:20→19:54)
[2021-07-08] MEDS: DOCUSATE SODIUM 100 MG CAPSULE PO SCH ×2 (08:20→19:54)
[2021-07-08] MEDS: FLUTICASONE/VILANTEROL 100-25 MCG/INH INHALER [14] IH SCH (09:00)
[2021-07-08] MEDS: ALBUTEROL SULFATE 2.5 MG/0.5 ML NEB SOLUTION NEB PRN ×5 (09:01→23:28)
[2021-07-08 11:41] VITALS: BP 124/71
[2021-07-08 15:01] VITALS: BP 130/78
[2021-07-08] MEDS ORDERED: 0.9% SODIUM CHLORIDE 5 ML NEB SOLUTION NEB ONE (15:09)
[2021-07-08 19:17] VITALS: BP 115/60
[2021-07-08 23:38] VITALS: BP 111/67
[2021-07-09] MEDS: CALCIUM CARBONATE 500 MG CHEWABLE TABLET CHEW PRN ×3 (03:58→23:16)
[2021-07-09 04:04] VITALS: BP 152/68
[2021-07-09] MEDS: ALBUTEROL SULFATE 2.5 MG/0.5 ML NEB SOLUTION NEB PRN ×4 (04:17→23:31)
[2021-07-09 08:02] VITALS: BP 141/84
[2021-07-09] MEDS ORDERED: SODIUM CHLORIDE 3% 15 ML NEB SOLUTION NEB ONE (08:34)
[2021-07-09] MEDS: DOCUSATE SODIUM 100 MG CAPSULE PO SCH ×2 (09:00→20:49)
[2021-07-09] MEDS: CARVEDILOL 3.125 MG TABLET PO SCH ×2 (09:23→20:48)
[2021-07-09] MEDS: FAMOTIDINE 20 MG TABLET PO SCH (09:23)
[2021-07-09] MEDS: HEPARIN SODIUM,PORCINE 5,000 UNITS/ML VIAL SQ SCH ×3 (09:25→23:16)
[2021-07-09] MEDS: FLUTICASONE/VILANTEROL 100-25 MCG/INH INHALER [14] IH SCH (09:30)
[2021-07-09 11:34] VITALS: BP 106/63
[2021-07-09 15:58] VITALS: BP 149/66
[2021-07-09] MEDS ORDERED: 0.9% SODIUM CHLORIDE 5 ML NEB SOLUTION NEB ONE ×2 (16:55→23:30)
[2021-07-09 19:20] VITALS: BP 106/62
[2021-07-09 23:55] VITALS: BP 136/76
[2021-07-10 04:33] VITALS: BP 127/84
[2021-07-10] MEDS: CALCIUM CARBONATE 500 MG CHEWABLE TABLET CHEW PRN (05:26)
[2021-07-10] MEDS ORDERED: 0.9% SODIUM CHLORIDE 5 ML NEB SOLUTION NEB ONE (07:41)
[2021-07-10] MEDS: ALBUTEROL SULFATE 2.5 MG/0.5 ML NEB SOLUTION NEB PRN (07:50)
[2021-07-10 07:55] VITALS: BP 137/70
[2021-07-10] MEDS: DOCUSATE SODIUM 100 MG CAPSULE PO SCH (09:00)
[2021-07-10] MEDS: CARVEDILOL 3.125 MG TABLET PO SCH (09:08)
[2021-07-10] MEDS: HEPARIN SODIUM,PORCINE 5,000 UNITS/ML VIAL SQ SCH (09:08)
[2021-07-10] MEDS: FAMOTIDINE 20 MG TABLET PO SCH (09:09)
[2021-07-10] MEDS ORDERED: NACL1 PO (11:23)
[2021-07-10 11:46] LABS: ANION GAP 8 mmol/L (8-16); CALCIUM, TOTAL 8.6 mg/dL (8.8-10.5); CARBON DIOXIDE 29 mmol/L (22-29); CHLORIDE 97 mmol/L (98-107); CREATININE 0.77 mg/dL (0.60-1.30); GLOMERULAR FILTR. RATE CALC > 60 mL/min (>60); GLUCOSE,RANDOM 62 mg/dL (70-110); POTASSIUM 4.7 mmol/L (3.5-5.1); SODIUM SERUM 134 mmol/L (136-145); UREA NITROGEN, BLOOD 9 mg/dL (7-18)
== END 2021-07-10 12:15 | disposition home or self-care (01) | DRG 191 ==
LOC: EMS 21:58 → 5S 07-07 03:00
PROVIDERS: ADMIT Internal Medicine; ATTEND Internal Medicine
DX: J44.1 Chronic obstructive pulmonary disease with (acute) exacerbation (principal); E87.1 Hypo-osmolality and hyponatremia; K74.60 Unspecified cirrhosis of liver; D63.8 Anemia in other chronic diseases classified elsewhere; I10 Essential (primary) hypertension; K76.0 Fatty (change of) liver, not elsewhere classified; Z20.822 Contact with and (suspected) exposure to COVID-19; Z79.51 Long term (current) use of inhaled steroids; Z79.899 Other long term (current) drug therapy; Z87.891 Personal history of nicotine dependence; Z98.84 Bariatric surgery status; Z88.8 Allergy status to other drugs, medicaments and biological substances
CPT/HCPCS: 71045; 80048; 80053; 81001; 83735; 83880; 83935; 84100; 84295; 84300; 84484; 85025; 93005; 94640; 99285; J1644; J2930; J7030; Q9967; 36415-L1; 36415-TC; J7611; J7613

== ENCOUNTER 2021-08-18 14:10 | Inpatient (IN) | payer OTHER ==
[~2021-08-18] VITALS: Ht 177.8 cm; Wt 81.8 kg
[~2021-08-18 14:10] MED LIST changes: -IPRA3AMP24 NEB
[2021-08-18 14:35] LABS: BASOPHILS % (AUTO) 0.9 % (0.0-2.0); EOSINOPHILS % (AUTO) 1.7 % (1.0-6.0); HEMATOCRIT 25.8 % (41-53); HEMOGLOBIN 8.9 g/dL (13.5-17.5); LYMPHOCYTES # (AUTO) 0.8 K/uL (1.0-4.8); LYMPHOCYTES % (AUTO) 11.7 % (22.0-44.0); MEAN CORPUSCULAR HEMOGLOBIN 30.8 pg (26.0-34.0); MEAN CORPUSCULAR HGB CONC 34.7 G/dL (31.0-37.0); MEAN CORPUSCULAR VOLUME 89 fL (80-100); MONOCYTES # (AUTO) 0.5 K/uL (0.1-1.0); MONOCYTES % (AUTO) 7.5 % (2.0-9.0); NEUTROPHILS # (AUTO) 5.3 K/uL (1.8-7.7); NEUTROPHILS % (AUTO) 78.2 % (40.0-70.0); PLATELET COUNT (AUTO) 276 K/uL (150-450); RED BLOOD CELL COUNT(AUTO) 2.91 MIL/uL (4.50-5.90)
[2021-08-18 14:51] LABS: ALANINE AMINOTRANSFERASE 9 U/L (12-78); ALBUMIN 2.9 g/dL (3.4-5.0); ALKALINE PHOSPHATASE 82 U/L (46-116); ANION GAP 11 mmol/L (8-16); ASPARTATE AMINOTRANSFERASE 15 U/L (15-37); BILIRUBIN,TOTAL 0.3 mg/dL (0.1-1.0); CALCIUM, TOTAL 8.3 mg/dL (8.8-10.5); CARBON DIOXIDE 24 mmol/L (22-29); CHLORIDE 81 mmol/L (98-107); CREATININE 0.78 mg/dL (0.60-1.30); GLOMERULAR FILTR. RATE CALC > 60 mL/min (>60); POTASSIUM 3.4 mmol/L (3.5-5.1); TOTAL PROTEIN, SERUM 5.9 g/dL (6.4-8.2); UREA NITROGEN, BLOOD 4 mg/dL (7-18)
[2021-08-18 14:58] LABS: SODIUM SERUM 116 mmol/L (136-145)
[2021-08-18 14:59] LABS: GLUCOSE,RANDOM 46 mg/dL (70-110)
[2021-08-18] MEDS ORDERED: DEXTROSE 50%-WATER 25 GM/50 ML SYRINGE IVP ONE (15:15)
[2021-08-18] MEDS: TOLVAPTAN 15 MG TABLET PO SCH (16:11)
[2021-08-18] MEDS ORDERED: ACETAMINOPHEN 325 MG TABLET PO PRN (16:30)
[2021-08-18] MEDS ORDERED: MAGNESIUM HYDROXIDE SUSPENSION 30 ML UDCUP PO PRN (16:30)
[2021-08-18] MEDS ORDERED: ONDANSETRON HCL 4 MG/2 ML VIAL IVP PRN (16:30)
[2021-08-18 16:42] LABS: COVID AG,FIA SOURCE NASAL SWAB
[2021-08-18 18:10] VITALS: BP 137/83
[2021-08-18 19:40] VITALS: BP 120/62
[2021-08-18] MEDS ORDERED: BENZONATATE 100 MG CAPSULE PO PRN (21:15)
[2021-08-18] MEDS ORDERED: BENZOCAINE/MENTHOL LOZENGE PO PRN (21:15)
[2021-08-18 22:16] LABS: GLUCOMETER DEV NAME(LOC) 6N.1; GLUCOSE,POINT OF CARE 90 MG/DL (70-110)
[2021-08-18] MEDS: HEPARIN SODIUM,PORCINE 5,000 UNITS/ML VIAL SQ SCH (23:24)
[2021-08-19 05:03] VITALS: BP 125/68
[2021-08-19 06:51] LABS: ANION GAP 8 mmol/L (8-16); CALCIUM, TOTAL 8.7 mg/dL (8.8-10.5); CARBON DIOXIDE 27 mmol/L (22-29); CHLORIDE 89 mmol/L (98-107); CREATININE 0.86 mg/dL (0.60-1.30); GLOMERULAR FILTR. RATE CALC > 60 mL/min (>60); GLUCOSE,RANDOM 85 mg/dL (70-110); POTASSIUM 3.6 mmol/L (3.5-5.1); UREA NITROGEN, BLOOD 4 mg/dL (7-18)
[2021-08-19 06:56] LABS: SODIUM SERUM 124 mmol/L (136-145)
[2021-08-19] MEDS ORDERED: COSYNTROPIN 0.25 MG VIAL IVP ONE (07:30)
[2021-08-19 07:52] VITALS: BP 123/62
[2021-08-19] MEDS: HEPARIN SODIUM,PORCINE 5,000 UNITS/ML VIAL SQ SCH ×3 (08:56→23:38)
[2021-08-19] MEDS: FAMOTIDINE 20 MG TABLET PO SCH (08:57)
[2021-08-19] MEDS ORDERED: ALBUTEROL SULFATE/IPRATROPIUM 100-20 MCG/SPRAY 4 GM INHALER IH PRN ×2 (12:45→20:45)
[2021-08-19] MEDS ORDERED: IPRA3AMP24 NEB (12:55)
[2021-08-19] MEDS: FLUTICASONE/VILANTEROL 100-25 MCG/INH INHALER [14] IH SCH (13:32)
[2021-08-19] MEDS: TOLVAPTAN 15 MG TABLET PO SCH (15:43)
[2021-08-19 16:14] VITALS: BP 129/61
[2021-08-19 19:56] LABS: GLUCOMETER DEV NAME(LOC) 6N.2; GLUCOSE,POINT OF CARE 101 MG/DL (70-110)
[2021-08-19] MEDS ORDERED: BENZONATATE 100 MG CAPSULE PO PRN (20:00)
[2021-08-19 20:02] VITALS: BP 113/75
[2021-08-19] MEDS: ALBUTEROL SULFATE 2.5 MG/0.5 ML NEB SOLUTION NEB PRN (20:59)
[2021-08-19] MEDS: IPRATROPIUM BROMIDE 0.5 MG/2.5 ML NEB SOLUTION NEB PRN (20:59)
[2021-08-20 04:30] VITALS: BP 126/78
[2021-08-20] MEDS: IPRATROPIUM BROMIDE 0.5 MG/2.5 ML NEB SOLUTION NEB PRN (04:38)
[2021-08-20] MEDS: ALBUTEROL SULFATE 2.5 MG/0.5 ML NEB SOLUTION NEB PRN (04:38)
[2021-08-20 07:06] LABS: ANION GAP 6 mmol/L (8-16); CALCIUM, TOTAL 8.2 mg/dL (8.8-10.5); CARBON DIOXIDE 29 mmol/L (22-29); CHLORIDE 97 mmol/L (98-107); CREATININE 0.72 mg/dL (0.60-1.30); GLOMERULAR FILTR. RATE CALC > 60 mL/min (>60); GLUCOSE,RANDOM 91 mg/dL (70-110); POTASSIUM 3.6 mmol/L (3.5-5.1); SODIUM SERUM 132 mmol/L (136-145); UREA NITROGEN, BLOOD 7 mg/dL (7-18)
[2021-08-20] MEDS: FAMOTIDINE 20 MG TABLET PO SCH (08:03)
[2021-08-20] MEDS: HEPARIN SODIUM,PORCINE 5,000 UNITS/ML VIAL SQ SCH (08:03)
[2021-08-20] MEDS: FLUTICASONE/VILANTEROL 100-25 MCG/INH INHALER [14] IH SCH (08:10)
[2021-08-20 08:13] VITALS: BP 119/64
[2021-08-20] MEDS ORDERED: NACL1 PO (11:04)
[2021-08-20 11:07] LABS: CORTISOL Baseline 14.2 ug/dL; CORTISOL STIMULATED,ACTH 29.3 ug/dL (Not Estab.)
== END 2021-08-20 11:15 | disposition home or self-care (01) | DRG 641 ==
LOC: EMS 14:13 → 6S 16:28
PROVIDERS: ADMIT Internal Medicine; ATTEND Internal Medicine
DX: E87.1 Hypo-osmolality and hyponatremia (principal); J44.9 Chronic obstructive pulmonary disease, unspecified; D63.8 Anemia in other chronic diseases classified elsewhere; E16.2 Hypoglycemia, unspecified; Z20.822 Contact with and (suspected) exposure to COVID-19; K74.60 Unspecified cirrhosis of liver; K76.0 Fatty (change of) liver, not elsewhere classified; Z87.891 Personal history of nicotine dependence; Z98.84 Bariatric surgery status; Z88.6 Allergy status to analgesic agent; Z79.899 Other long term (current) drug therapy
CPT/HCPCS: 71046; 80048; 80053; 82533; 82962; 83735; 83935; 84295; 84300; 85025; 93005; 94640; 99285; J0834; J1644; Q9967; 36415-L1; 36415-TC; J7613

== ENCOUNTER → 2021-08-18 | Outpatient (CLI) | payer OTHER ==
[~2021-08-18] MED LIST changes: -ALBU8.5H8 IH; -AZIT-84 PO; -BENZ-70 PO; -FURO20 PO; +IPRA3AMP24 NEB; -METO25XL PO; -POTA8TAB71 PO; -PRED20 PO; -SPIR-37 PO
[2021-08-18 12:33] LABS: ALBUMIN 3.1 g/dL (3.4-5.0); ANION GAP 6 mmol/L (8-16); CALCIUM, TOTAL 8.6 mg/dL (8.8-10.5); CARBON DIOXIDE 27 mmol/L (22-29); CHLORIDE 82 mmol/L (98-107); CREATININE 0.79 mg/dL (0.60-1.30); GLOMERULAR FILTR. RATE CALC > 60 mL/min (>60); GLUCOSE,RANDOM 94 mg/dL (70-110); PHOSPHORUS 3.6 mg/dL (2.5-4.9); POTASSIUM 4.3 mmol/L (3.5-5.1); UREA NITROGEN, BLOOD 5 mg/dL (7-18)
[2021-08-18 13:05] LABS: SODIUM SERUM 115 mmol/L (136-145)
== END | disposition home or self-care (01) ==
LOC: LABPV 10:23
PROVIDERS: ATTEND Hospitalist
DX: E87.1 Hypo-osmolality and hyponatremia (principal)
CPT/HCPCS: 80069; 83930; 36415-L1; 36415-TC

== ENCOUNTER 2021-10-09 23:00 | Inpatient (IN) | payer OTHER ==
[~2021-10-09] VITALS: Ht 177.8 cm; Wt 76.9 kg
[~2021-10-09 23:00] MED LIST changes: +IPRA3AMP24 NEB; -METO-558 PO
[2021-10-09] MEDS ORDERED: ALBUTEROL SULFATE 5 MG/ML 20 ML NEB SOLN [BULK] NEB ONE (23:30)
[2021-10-09] MEDS ORDERED: IPRATROPIUM BROMIDE 0.5 MG/2.5 ML NEB SOLUTION NEB ONE (23:30)
[2021-10-09 23:37] LABS: BASOPHILS % (AUTO) 0.4 % (0.0-2.0); EOSINOPHILS % (AUTO) 1.7 % (1.0-6.0); HEMOGLOBIN 7.4 g/dL (13.5-17.5); LYMPHOCYTES # (AUTO) 0.5 K/uL (1.0-4.8); LYMPHOCYTES % (AUTO) 13.4 % (22.0-44.0); MEAN CORPUSCULAR HGB CONC 34.9 G/dL (31.0-37.0); MEAN CORPUSCULAR VOLUME 94 fL (80-100); MONOCYTES # (AUTO) 0.3 K/uL (0.1-1.0); MONOCYTES % (AUTO) 7.6 % (2.0-9.0); NEUTROPHILS % (AUTO) 76.9 % (40.0-70.0); PLATELET COUNT (AUTO) 187 K/uL (150-450); RED BLOOD CELL COUNT(AUTO) 2.23 MIL/uL (4.50-5.90); RED CELL DISTRIBUTION WIDTH 25.3 % (11.5-14.5)
[2021-10-09 23:50] LABS: INR 1.1 (0.9-1.1); PROTHROMBIN TIME 11.5 SEC (9.4-11.6)
[2021-10-09 23:53] LABS: ALBUMIN 2.6 g/dL (3.4-5.0); BILIRUBIN,TOTAL 0.5 mg/dL (0.1-1.0); CALCIUM, TOTAL 8.2 mg/dL (8.8-10.5); CREATININE 1.44 mg/dL (0.60-1.30); POTASSIUM 3.4 mmol/L (3.5-5.1); TOTAL PROTEIN, SERUM 5.2 g/dL (6.4-8.2)
[2021-10-10 00:10] LABS: COVID AG,FIA SOURCE NASAL SWAB
[2021-10-10] MEDS ORDERED: ACETAMINOPHEN 325 MG TABLET PO PRN (00:30)
[2021-10-10] MEDS ORDERED: ONDANSETRON HCL 4 MG/2 ML VIAL IVP PRN (00:30)
[2021-10-10] MEDS ORDERED: FURO-152 PO (00:37)
[2021-10-10] MEDS ORDERED: SODIUM CHLORIDE 3% 500 ML IV SCH (00:45)
[2021-10-10] MEDS ORDERED: POTASSIUM CHLORIDE 10% 40 MEQ/30 ML LIQUID UDCUP PO ONE (00:45)
[2021-10-10] MEDS: SODIUM CHLORIDE 1 GM TABLET PO SCH ×3 (00:45→18:32)
[2021-10-10] MEDS ORDERED: MISC MED-CONVERTED FROM AMBULATORY (Ipratropium/Albuterol Sulfate (Duoneb 2.5-0.5 Mg/3 Ml NEB PRN (00:45)
[2021-10-10 01:21] LABS: RETICULOCYTE % (AUTO) 2.9 % (0.5-2.3)
[2021-10-10] MEDS: ALBUTEROL SULFATE 2.5 MG/0.5 ML NEB SOLUTION NEB PRN ×4 (03:40→23:58)
[2021-10-10] MEDS: IPRATROPIUM BROMIDE 0.5 MG/2.5 ML NEB SOLUTION NEB PRN ×4 (03:40→23:58)
[2021-10-10 05:07] LABS: CALCIUM, TOTAL 8.2 mg/dL (8.8-10.5); CREATININE 1.31 mg/dL (0.60-1.30); POTASSIUM 3.7 mmol/L (3.5-5.1)
[2021-10-10 06:40] LABS: BASOPHILS % (AUTO) 0.4 % (0.0-2.0); EOSINOPHILS % (AUTO) 1.3 % (1.0-6.0); HEMATOCRIT 21.8 % (41-53); HEMOGLOBIN 7.4 g/dL (13.5-17.5); LYMPHOCYTES # (AUTO) 0.4 K/uL (1.0-4.8); LYMPHOCYTES % (AUTO) 12.4 % (22.0-44.0); MEAN CORPUSCULAR HEMOGLOBIN 32.7 pg (26.0-34.0); MEAN CORPUSCULAR VOLUME 96 fL (80-100); MONOCYTES # (AUTO) 0.2 K/uL (0.1-1.0); MONOCYTES % (AUTO) 5.7 % (2.0-9.0); NEUTROPHILS # (AUTO) 2.7 K/uL (1.8-7.7); NEUTROPHILS % (AUTO) 80.2 % (40.0-70.0); PLATELET COUNT (AUTO) 205 K/uL (150-450); RED BLOOD CELL COUNT(AUTO) 2.27 MIL/uL (4.50-5.90); RED CELL DISTRIBUTION WIDTH 25.2 % (11.5-14.5)
[2021-10-10] MEDS: OMEPRAZOLE 20 MG CAPSULE PO SCH (09:14)
[2021-10-10] MEDS ORDERED: FURO20TA4 PO (11:02)
[2021-10-10] MEDS ORDERED: SODI100037 PO (11:02)
[2021-10-10 11:22] LABS: CALCIUM, TOTAL 8.3 mg/dL (8.8-10.5); CREATININE 1.36 mg/dL (0.60-1.30); POTASSIUM 4.2 mmol/L (3.5-5.1)
[2021-10-10 13:36] LABS: APPEARANCE,URINE CLEAR (CLEAR); BILIRUBIN,URINE NEGATIVE (NEGATIVE); GLUCOSE, URINE (UA) NEGATIVE (NEGATIVE); KETONES,URINE NEGATIVE (NEGATIVE); LEUKOCYTE ESTERASE ,URINE NEGATIVE (NEGATIVE); NITRATE,URINE NEGATIVE (NEGATIVE); OCCULT BLOOD,URINE NEGATIVE (NEGATIVE); PH,URINE 6.5 (5.0-8.0); PROTEIN,URINE NEGATIVE (NEGATIVE); SPECIFIC GRAVITIY, URINE 1.016 (1.003-1.030); UROBILINOGEN,URINE <=1.0 mg/dL (<=1.0)
[2021-10-10] MEDS: ALBUTEROL SULFATE 2.5 MG/0.5 ML NEB SOLUTION NEB SCH ×2 (14:33→20:27)
[2021-10-10] MEDS: IPRATROPIUM BROMIDE 0.5 MG/2.5 ML NEB SOLUTION NEB SCH ×2 (14:33→20:24)
[2021-10-10 16:47] LABS: RBC,URINE None Seen /HPF (0-2); SQUAMOUS EPITHELIAL CELL,UR Rare /LPF (None Seen); WBC,URINE 0-2 /HPF (0-5)
[2021-10-10 16:52] LABS: BACTERIA,URINE None Seen /HPF (None Seen)
[2021-10-10 17:06] VITALS: BP 106/65
[2021-10-10 17:17] LABS: ANION GAP 11 mmol/L (8-16); CALCIUM, TOTAL 8.1 mg/dL (8.8-10.5); CARBON DIOXIDE 20 mmol/L (22-29); CHLORIDE 88 mmol/L (98-107); GLOMERULAR FILTR. RATE CALC > 60 mL/min (>60); GLUCOSE,RANDOM 80 mg/dL (70-110); POTASSIUM 3.8 mmol/L (3.5-5.1); UREA NITROGEN, BLOOD 15 mg/dL (7-18)
[2021-10-10 17:20] LABS: SODIUM SERUM 119 mmol/L (136-145)
[2021-10-10 19:30] VITALS: BP 109/59
[2021-10-10] MEDS ORDERED: SODIUM CHLORIDE 1 GM TABLET PO SCH (21:00)
[2021-10-10 23:04] LABS: CALCIUM, TOTAL 7.9 mg/dL (8.8-10.5); CREATININE 1.27 mg/dL (0.60-1.30); POTASSIUM 3.8 mmol/L (3.5-5.1)
[2021-10-10] MEDS ORDERED: SODIUM CHLORIDE 1 GM TABLET PO ONE (23:30)
[2021-10-11] VITALS (7 sets, daily range): BP systolic 91–140; BP diastolic 50–74
[2021-10-11] MEDS: ALBUTEROL SULFATE 2.5 MG/0.5 ML NEB SOLUTION NEB SCH ×4 (02:00→19:57)
[2021-10-11] MEDS: IPRATROPIUM BROMIDE 0.5 MG/2.5 ML NEB SOLUTION NEB SCH ×4 (02:00→19:57)
[2021-10-11] MEDS: IPRATROPIUM BROMIDE 0.5 MG/2.5 ML NEB SOLUTION NEB PRN (04:08)
[2021-10-11] MEDS: ALBUTEROL SULFATE 2.5 MG/0.5 ML NEB SOLUTION NEB PRN (04:08)
[2021-10-11 07:26] LABS: BASOPHILS % (AUTO) 0.3 % (0.0-2.0); EOSINOPHILS % (AUTO) 0.1 % (1.0-6.0); HEMATOCRIT 21.3 % (41-53); HEMOGLOBIN 7.2 g/dL (13.5-17.5); LYMPHOCYTES # (AUTO) 0.2 K/uL (1.0-4.8); LYMPHOCYTES % (AUTO) 5.2 % (22.0-44.0); MEAN CORPUSCULAR HEMOGLOBIN 32.6 pg (26.0-34.0); MEAN CORPUSCULAR VOLUME 96 fL (80-100); MONOCYTES # (AUTO) 0.2 K/uL (0.1-1.0); MONOCYTES % (AUTO) 4.5 % (2.0-9.0); NEUTROPHILS # (AUTO) 3.3 K/uL (1.8-7.7); NEUTROPHILS % (AUTO) 89.9 % (40.0-70.0); PLATELET COUNT (AUTO) 197 K/uL (150-450); RED BLOOD CELL COUNT(AUTO) 2.22 MIL/uL (4.50-5.90); RED CELL DISTRIBUTION WIDTH 25.4 % (11.5-14.5)
[2021-10-11 07:58] LABS: ALANINE AMINOTRANSFERASE 10 U/L (12-78); ALBUMIN 2.3 g/dL (3.4-5.0); ALKALINE PHOSPHATASE 99 U/L (46-116); ANION GAP 12 mmol/L (8-16); ASPARTATE AMINOTRANSFERASE 20 U/L (15-37); BILIRUBIN,TOTAL 0.5 mg/dL (0.1-1.0); CALCIUM, TOTAL 8.1 mg/dL (8.8-10.5); CARBON DIOXIDE 20 mmol/L (22-29); CHLORIDE 91 mmol/L (98-107); CHOL/HDL RATIO 1.5 (4.2-7.3); CHOLESTEROL 87 mg/dL (131-200); CREATININE 1.12 mg/dL (0.60-1.30); FREE T4 (FREE THYROXINE) 1.53 ng/dL (0.76-1.46); GLOMERULAR FILTR. RATE CALC > 60 mL/min (>60); GLUCOSE,RANDOM 83 mg/dL (70-110); HDL CHOLESTEROL 60 mg/dL (40-60); LDL CHOL (CALC.) 20 mg/dL (0-130); PHOSPHORUS 3.7 mg/dL (2.5-4.9); POTASSIUM 3.7 mmol/L (3.5-5.1); TOTAL PROTEIN, SERUM 5.1 g/dL (6.4-8.2); TRIGLYCERIDES 35 mg/dL (15-150); UREA NITROGEN, BLOOD 14 mg/dL (7-18)
[2021-10-11 08:03] LABS: SODIUM SERUM 123 mmol/L (136-145)
[2021-10-11] MEDS ORDERED: SODIUM CHLORIDE 1 GM TABLET PO SCH (09:00)
[2021-10-11] MEDS ORDERED: MAGNESIUM OXIDE 400 MG TABLET PO ONE (09:30)
[2021-10-11] MEDS: SODIUM CHLORIDE 1 GM TABLET PO SCH ×4 (10:15→20:14)
[2021-10-11] MEDS: OMEPRAZOLE 20 MG CAPSULE PO SCH (10:15)
[2021-10-11] MEDS: FLUTICASONE/VILANTEROL 100-25 MCG/INH INHALER [14] IH SCH (10:15)
[2021-10-11 12:07] LABS: ANION GAP 11 mmol/L (8-16); CARBON DIOXIDE 20 mmol/L (22-29); CHLORIDE 92 mmol/L (98-107); CREATININE 1.15 mg/dL (0.60-1.30); GLOMERULAR FILTR. RATE CALC > 60 mL/min (>60); GLUCOSE,RANDOM 83 mg/dL (70-110); POTASSIUM 4.1 mmol/L (3.5-5.1); UREA NITROGEN, BLOOD 15 mg/dL (7-18)
[2021-10-11 12:10] LABS: SODIUM SERUM 123 mmol/L (136-145)
[2021-10-11] MEDS ORDERED: SODIUM CHLORIDE 3% 500 ML IV SCH (13:00)
[2021-10-11] MEDS: GuaiFENesin SR 600 MG ER TABLET PO SCH ×2 (14:21→20:14)
[2021-10-11 15:48] LABS: ANION GAP 10 mmol/L (8-16); CALCIUM, TOTAL 8.1 mg/dL (8.8-10.5); CARBON DIOXIDE 21 mmol/L (22-29); CHLORIDE 94 mmol/L (98-107); CREATININE 1.06 mg/dL (0.60-1.30); GLOMERULAR FILTR. RATE CALC > 60 mL/min (>60); GLUCOSE,RANDOM 106 mg/dL (70-110); POTASSIUM 3.9 mmol/L (3.5-5.1); SODIUM SERUM 125 mmol/L (136-145); UREA NITROGEN, BLOOD 15 mg/dL (7-18)
[2021-10-11 19:13] LABS: ANION GAP 11 mmol/L (8-16); CARBON DIOXIDE 23 mmol/L (22-29); CHLORIDE 96 mmol/L (98-107); CREATININE 0.97 mg/dL (0.60-1.30); GLOMERULAR FILTR. RATE CALC > 60 mL/min (>60); GLUCOSE,RANDOM 88 mg/dL (70-110); POTASSIUM 3.7 mmol/L (3.5-5.1); SODIUM SERUM 130 mmol/L (136-145); UREA NITROGEN, BLOOD 15 mg/dL (7-18)
[2021-10-12] VITALS: BP 131/72
[2021-10-12 00:45] LABS: ANION GAP 9 mmol/L (8-16); CALCIUM, TOTAL 8.2 mg/dL (8.8-10.5); CARBON DIOXIDE 23 mmol/L (22-29); CHLORIDE 98 mmol/L (98-107); CREATININE 0.95 mg/dL (0.60-1.30); GLOMERULAR FILTR. RATE CALC > 60 mL/min (>60); GLUCOSE,RANDOM 88 mg/dL (70-110); POTASSIUM 3.7 mmol/L (3.5-5.1); SODIUM SERUM 130 mmol/L (136-145); UREA NITROGEN, BLOOD 14 mg/dL (7-18)
[2021-10-12] MEDS: ALBUTEROL SULFATE 2.5 MG/0.5 ML NEB SOLUTION NEB SCH ×3 (02:49→14:37)
[2021-10-12] MEDS: IPRATROPIUM BROMIDE 0.5 MG/2.5 ML NEB SOLUTION NEB SCH ×3 (02:49→14:38)
[2021-10-12 04:05] VITALS: BP 128/67
[2021-10-12 06:42] LABS: BASOPHILS % (AUTO) 0.5 % (0.0-2.0); EOSINOPHILS % (AUTO) 1.6 % (1.0-6.0); HEMOGLOBIN 7.2 g/dL (13.5-17.5); LYMPHOCYTES # (AUTO) 0.4 K/uL (1.0-4.8); LYMPHOCYTES % (AUTO) 11.8 % (22.0-44.0); MEAN CORPUSCULAR HEMOGLOBIN 33.5 pg (26.0-34.0); MEAN CORPUSCULAR HGB CONC 34.3 G/dL (31.0-37.0); MEAN CORPUSCULAR VOLUME 98 fL (80-100); MONOCYTES # (AUTO) 0.2 K/uL (0.1-1.0); MONOCYTES % (AUTO) 4.9 % (2.0-9.0); NEUTROPHILS # (AUTO) 2.9 K/uL (1.8-7.7); NEUTROPHILS % (AUTO) 81.2 % (40.0-70.0); PLATELET COUNT (AUTO) 199 K/uL (150-450); RED BLOOD CELL COUNT(AUTO) 2.15 MIL/uL (4.50-5.90); RED CELL DISTRIBUTION WIDTH 25.4 % (11.5-14.5)
[2021-10-12 07:02] LABS: ALANINE AMINOTRANSFERASE 11 U/L (12-78); ALBUMIN 2.2 g/dL (3.4-5.0); ALKALINE PHOSPHATASE 97 U/L (46-116); ANION GAP 9 mmol/L (8-16); ASPARTATE AMINOTRANSFERASE 20 U/L (15-37); BILIRUBIN,TOTAL 0.3 mg/dL (0.1-1.0); CALCIUM, TOTAL 8.5 mg/dL (8.8-10.5); CARBON DIOXIDE 23 mmol/L (22-29); CHLORIDE 98 mmol/L (98-107); CREATININE 0.89 mg/dL (0.60-1.30); GLOMERULAR FILTR. RATE CALC > 60 mL/min (>60); GLUCOSE,RANDOM 80 mg/dL (70-110); POTASSIUM 4.2 mmol/L (3.5-5.1); SODIUM SERUM 130 mmol/L (136-145); TOTAL PROTEIN, SERUM 5.1 g/dL (6.4-8.2); UREA NITROGEN, BLOOD 13 mg/dL (7-18)
[2021-10-12 07:15] VITALS: BP 119/60
[2021-10-12] MEDS: FLUTICASONE/VILANTEROL 100-25 MCG/INH INHALER [14] IH SCH (08:36)
[2021-10-12] MEDS: OMEPRAZOLE 20 MG CAPSULE PO SCH (08:37)
[2021-10-12] MEDS: GuaiFENesin SR 600 MG ER TABLET PO SCH (08:37)
[2021-10-12] MEDS: SODIUM CHLORIDE 1 GM TABLET PO SCH ×2 (08:37→13:40)
[2021-10-12 09:34] LABS: ANION GAP 10 mmol/L (8-16); CARBON DIOXIDE 22 mmol/L (22-29); CHLORIDE 99 mmol/L (98-107); GLUCOSE,RANDOM 99 mg/dL (70-110); POTASSIUM 4.3 mmol/L (3.5-5.1); SODIUM SERUM 131 mmol/L (136-145); UREA NITROGEN, BLOOD 14 mg/dL (7-18)
[2021-10-12 09:35] LABS: CALCIUM, TOTAL 8.7 mg/dL (8.8-10.5); CREATININE 1.08 mg/dL (0.60-1.30); GLOMERULAR FILTR. RATE CALC > 60 mL/min (>60)
[2021-10-12 09:55] LABS: PHOSPHORUS 3.5 mg/dL (2.5-4.9)
[2021-10-12 11:46] VITALS: BP 134/59
[2021-10-12 13:14] LABS: ANION GAP 11 mmol/L (8-16); CALCIUM, TOTAL 8.4 mg/dL (8.8-10.5); CARBON DIOXIDE 21 mmol/L (22-29); CHLORIDE 99 mmol/L (98-107); CREATININE 1.06 mg/dL (0.60-1.30); GLOMERULAR FILTR. RATE CALC > 60 mL/min (>60); GLUCOSE,RANDOM 139 mg/dL (70-110); POTASSIUM 3.7 mmol/L (3.5-5.1); SODIUM SERUM 131 mmol/L (136-145); UREA NITROGEN, BLOOD 14 mg/dL (7-18)
[2021-10-12] MEDS ORDERED: NACL1 PO (14:07)
[2021-10-12 16:00] VITALS: BP 115/68
== END 2021-10-12 15:15 | disposition home or self-care (01) | DRG 191 ==
LOC: EMS 23:03 → 5N 10-10 14:10
PROVIDERS: ADMIT Internal Medicine; ATTEND Internal Medicine
DX: J44.1 Chronic obstructive pulmonary disease with (acute) exacerbation (principal); E87.1 Hypo-osmolality and hyponatremia; E46 Unspecified protein-calorie malnutrition; N17.9 Acute kidney failure, unspecified; D63.8 Anemia in other chronic diseases classified elsewhere; E87.6 Hypokalemia; Z20.822 Contact with and (suspected) exposure to COVID-19; R26.81 Unsteadiness on feet; K74.60 Unspecified cirrhosis of liver; K76.0 Fatty (change of) liver, not elsewhere classified; F17.210 Nicotine dependence, cigarettes, uncomplicated; Z82.49 Family history of ischemic heart disease and other diseases of the circulatory system; Z98.84 Bariatric surgery status; Z88.8 Allergy status to other drugs, medicaments and biological substances; Z68.24 Body mass index [BMI] 24.0-24.9, adult; Z79.51 Long term (current) use of inhaled steroids
CPT/HCPCS: 71045; 80048; 80053; 80061; 81001; 82533; 83735; 83880; 83930; 84100; 84439; 84443; 84484; 85025; 85045; 85610; 85730; 93005; 93306; 94640; 99291; J7030; Q9967; 36415-L1; 36415-TC; J7611; J7613

== ENCOUNTER → 2021-10-20 | Outpatient (CLI) | payer OTHER ==
[~2021-10-20] MED LIST changes: +FLUT1BLS IH; +FOLI0.4T6 PO; +PRED-554 PO; +THIA100T80 PO
[2021-10-20 12:05] LABS: ANION GAP 11 mmol/L (8-16); CALCIUM, TOTAL 8.3 mg/dL (8.8-10.5); CARBON DIOXIDE 21 mmol/L (22-29); CHLORIDE 94 mmol/L (98-107); CREATININE 1.14 mg/dL (0.60-1.30); GLOMERULAR FILTR. RATE CALC > 60 mL/min (>60); GLUCOSE,RANDOM 86 mg/dL (70-110); SODIUM SERUM 126 mmol/L (136-145); UREA NITROGEN, BLOOD 8 mg/dL (7-18)
== END | disposition home or self-care (01) ==
LOC: LABMN 05:45
PROVIDERS: ATTEND Internal Medicine
DX: E87.1 Hypo-osmolality and hyponatremia (principal)
CPT/HCPCS: 80048

== ENCOUNTER 2021-10-24 13:01 | Inpatient (IN) | payer OTHER, MEDICAID ==
[~2021-10-24] VITALS: Ht 177.8 cm; Wt 78.6 kg
[~2021-10-24 13:01] MED LIST changes: -FLUT1BLS IH; -FOLI0.4T6 PO; -PRED-554 PO; -THIA100T80 PO
[2021-10-24 14:01] LABS: BASOPHILS % (AUTO) 0.5 % (0.0-2.0); EOSINOPHILS % (AUTO) 2.1 % (1.0-6.0); HEMATOCRIT 23.7 % (41-53); HEMOGLOBIN 7.9 g/dL (13.5-17.5); LYMPHOCYTES # (AUTO) 0.6 K/uL (1.0-4.8); LYMPHOCYTES % (AUTO) 13.3 % (22.0-44.0); MEAN CORPUSCULAR HEMOGLOBIN 32.9 pg (26.0-34.0); MEAN CORPUSCULAR HGB CONC 33.5 G/dL (31.0-37.0); MEAN CORPUSCULAR VOLUME 98 fL (80-100); MONOCYTES # (AUTO) 0.3 K/uL (0.1-1.0); MONOCYTES % (AUTO) 6.6 % (2.0-9.0); NEUTROPHILS # (AUTO) 3.6 K/uL (1.8-7.7); NEUTROPHILS % (AUTO) 77.5 % (40.0-70.0); PLATELET COUNT (AUTO) 289 K/uL (150-450); RED BLOOD CELL COUNT(AUTO) 2.41 MIL/uL (4.50-5.90); RED CELL DISTRIBUTION WIDTH 25.6 % (11.5-14.5)
[2021-10-24 14:02] LABS: COVID AG,FIA SOURCE NASAL SWAB
[2021-10-24 14:10] LABS: ANION GAP 11 mmol/L (8-16); CALCIUM, TOTAL 8.4 mg/dL (8.8-10.5); CARBON DIOXIDE 21 mmol/L (22-29); CHLORIDE 98 mmol/L (98-107); GLOMERULAR FILTR. RATE CALC > 60 mL/min (>60); GLUCOSE,RANDOM 93 mg/dL (70-110); POTASSIUM 3.8 mmol/L (3.5-5.1); SODIUM SERUM 130 mmol/L (136-145); UREA NITROGEN, BLOOD 11 mg/dL (7-18)
[2021-10-24] MEDS ORDERED: ALBUTEROL SULFATE 5 MG/ML 20 ML NEB SOLN [BULK] NEB ONE ×2 (14:15→17:15)
[2021-10-24] MEDS ORDERED: IPRATROPIUM BROMIDE 0.5 MG/2.5 ML NEB SOLUTION NEB ONE ×2 (14:15→17:15)
[2021-10-24] MEDS ORDERED: PredniSONE 20 MG TABLET PO ONE (14:15)
[2021-10-24 14:26] LABS: B-TYPE NATRIURETIC PEPTIDE 315 pg/mL (0-100)
[2021-10-24] MEDS ORDERED: 0.9% SODIUM CHLORIDE 5 ML NEB SOLUTION NEB ONE ×2 (14:30→17:27)
[2021-10-24] MEDS ORDERED: ONDANSETRON HCL 4 MG/2 ML VIAL IVP PRN ×2 (17:30→18:15)
[2021-10-24] MEDS ORDERED: ACETAMINOPHEN 325 MG TABLET PO PRN ×2 (17:30→18:15)
[2021-10-24] MEDS ORDERED: IPRATROPIUM BROMIDE 0.5 MG/2.5 ML NEB SOLUTION NEB PRN (18:15)
[2021-10-24] MEDS ORDERED: ZOLPIDEM TARTRATE 5 MG TABLET PO PRN (18:15)
[2021-10-24] MEDS ORDERED: MORPHINE SULFATE 2 MG/ML SYRINGE IVP PRN (18:15)
[2021-10-24] MEDS ORDERED: ALBUTEROL SULFATE 2.5 MG/0.5 ML NEB SOLUTION NEB PRN (18:15)
[2021-10-24] MEDS ORDERED: BISACODYL 10 MG RECTAL RECTAL SUPPOSITORY PR PRN (18:15)
[2021-10-24] MEDS ORDERED: HYDROCODONE/ACETAMINOPHEN 5-325 MG TABLET PO PRN (18:15)
[2021-10-24] MEDS ORDERED: IPRATROPIUM BROMIDE 0.5 MG/2.5 ML NEB SOLUTION NEB SCH (19:00)
[2021-10-24] MEDS ORDERED: ALBUTEROL SULFATE 2.5 MG/0.5 ML NEB SOLUTION NEB SCH (19:00)
[2021-10-24] MEDS: IPRATROPIUM BROMIDE 0.5 MG/2.5 ML NEB SOLUTION NEB SCH (19:28)
[2021-10-24] MEDS: ALBUTEROL SULFATE 2.5 MG/0.5 ML NEB SOLUTION NEB SCH (19:28)
[2021-10-24] MEDS: CefTRIAXone 1 GM/DEXTROSE 50 ML IV SCH (20:32)
[2021-10-24] MEDS: DOCUSATE SODIUM 100 MG CAPSULE PO SCH (21:00)
[2021-10-24 21:33] VITALS: BP 140/83
[2021-10-24] MEDS ORDERED: SODIUM CHLORIDE 0.9% 250 ML IV ONE (21:40)
[2021-10-24] MEDS: BENZONATATE 100 MG CAPSULE PO SCH (21:46)
[2021-10-24] MEDS: GuaiFENesin SR 600 MG ER TABLET PO SCH (21:46)
[2021-10-24] MEDS: SODIUM CHLORIDE 1 GM TABLET PO SCH (21:47)
[2021-10-24] MEDS: AZITHROMYCIN 500 MG/NS 250 ML IV SCH (23:26)
[2021-10-24] MEDS: MethylPREDNISolone SOD SUCC 125 MG/2 ML VIAL IVP SCH (23:26)
[2021-10-24] MEDS: HEPARIN SODIUM,PORCINE 5,000 UNITS/ML VIAL SQ SCH (23:26)
[2021-10-24 23:27] VITALS: BP 126/71
[2021-10-25] MEDS: IPRATROPIUM BROMIDE 0.5 MG/2.5 ML NEB SOLUTION NEB SCH ×4 (02:23→19:39)
[2021-10-25] MEDS: ALBUTEROL SULFATE 2.5 MG/0.5 ML NEB SOLUTION NEB SCH ×4 (02:23→19:39)
[2021-10-25 04:52] VITALS: BP 146/76
[2021-10-25] MEDS: MethylPREDNISolone SOD SUCC 125 MG/2 ML VIAL IVP SCH ×3 (05:28→18:47)
[2021-10-25 06:19] LABS: ANION GAP 12 mmol/L (8-16); CALCIUM, TOTAL 8.6 mg/dL (8.8-10.5); CARBON DIOXIDE 20 mmol/L (22-29); CHLORIDE 99 mmol/L (98-107); CREATININE 1.15 mg/dL (0.60-1.30); GLOMERULAR FILTR. RATE CALC > 60 mL/min (>60); GLUCOSE,RANDOM 165 mg/dL (70-110); POTASSIUM 4.4 mmol/L (3.5-5.1); SODIUM SERUM 131 mmol/L (136-145); UREA NITROGEN, BLOOD 13 mg/dL (7-18)
[2021-10-25 07:10] VITALS: BP 146/86
[2021-10-25] MEDS: PANTOPRAZOLE SODIUM 40 MG DR TABLET PO SCH (08:23)
[2021-10-25] MEDS: GuaiFENesin SR 600 MG ER TABLET PO SCH ×2 (08:23→20:01)
[2021-10-25] MEDS: SODIUM CHLORIDE 1 GM TABLET PO SCH ×4 (08:23→20:01)
[2021-10-25] MEDS: DOCUSATE SODIUM 100 MG CAPSULE PO SCH ×2 (08:23→20:01)
[2021-10-25] MEDS: BENZONATATE 100 MG CAPSULE PO SCH ×3 (08:23→20:01)
[2021-10-25] MEDS: HEPARIN SODIUM,PORCINE 5,000 UNITS/ML VIAL SQ SCH ×3 (08:24→23:37)
[2021-10-25] MEDS ORDERED: FLUTICASONE/VILANTEROL 100-25 MCG/INH INHALER [14] IH SCH (09:00)
[2021-10-25 11:20] VITALS: BP 140/73
[2021-10-25 15:20] VITALS: BP 143/78
[2021-10-25 15:55] VITALS: BP 142/79
[2021-10-25] MEDS: CefTRIAXone 1 GM/DEXTROSE 50 ML IV SCH (20:01)
[2021-10-25 20:08] VITALS: BP 148/86
[2021-10-26 00:01] VITALS: BP 139/93
[2021-10-26] MEDS: CefTRIAXone 1 GM/DEXTROSE 50 ML IV SCH (01:02)
[2021-10-26] MEDS: MethylPREDNISolone SOD SUCC 125 MG/2 ML VIAL IVP SCH ×5 (01:02→23:16)
[2021-10-26] MEDS: AZITHROMYCIN 500 MG/NS 250 ML IV SCH ×2 (01:50→23:16)
[2021-10-26] MEDS: ALBUTEROL SULFATE 2.5 MG/0.5 ML NEB SOLUTION NEB SCH ×4 (03:11→20:59)
[2021-10-26] MEDS: IPRATROPIUM BROMIDE 0.5 MG/2.5 ML NEB SOLUTION NEB SCH ×4 (03:11→20:59)
[2021-10-26 04:59] VITALS: BP 122/86
[2021-10-26 08:15] VITALS: BP 143/83
[2021-10-26] MEDS: SODIUM CHLORIDE 1 GM TABLET PO SCH ×4 (08:44→20:10)
[2021-10-26] MEDS: HEPARIN SODIUM,PORCINE 5,000 UNITS/ML VIAL SQ SCH ×3 (08:45→23:16)
[2021-10-26] MEDS: GuaiFENesin SR 600 MG ER TABLET PO SCH ×2 (08:45→20:10)
[2021-10-26] MEDS: PANTOPRAZOLE SODIUM 40 MG DR TABLET PO SCH (08:45)
[2021-10-26] MEDS: DOCUSATE SODIUM 100 MG CAPSULE PO SCH ×2 (08:45→20:18)
[2021-10-26] MEDS: BENZONATATE 100 MG CAPSULE PO SCH ×3 (08:45→20:10)
[2021-10-26] MEDS ORDERED: MethylPREDNISolone SOD SUCC 125 MG/2 ML VIAL IVP ONE (11:45)
[2021-10-26 11:57] VITALS: BP 135/83
[2021-10-26 15:29] LABS: ABG BASE EXCESS -6.7 mmol/L (-2.0-3.0); ABG METHEMOGLOBIN 0.3 % (0.0-1.5); ABG OXYGEN CONTENT 12.6 mL/dL (15.0-23.0); ABG OXYGEN SATURATION 96.7 % (95.0-98.0); ABG OXYHEMOGLOBIN 96.4 % (94.0-100.0); ABG PCO2 20 mmHg (35-45); ABG PH 7.528 (7.35-7.450); ABG TOTAL HEMOGLOBIN 9.2 G/dL (12.0-18.0); PO2, ARTERIAL BG 84.9 mmHg (79.0-87.0); SOURCE, BLOOD GAS ARTERIAL; TEMPERATURE, FAHRENHEIT, BG 97.4 FAHREN (96.0-98.6)
[2021-10-26 15:30] VITALS: BP 136/69
[2021-10-26 15:37] LABS: O2 DEVICE,BLOOD GAS ROOM AIR (ROOM AIR); SITE, BLOOD GAS LFT RADIAL
[2021-10-26 15:38] LABS: ABG A-A DIFF O2 41.5 mmHg (10-20.0)
[2021-10-26 20:38] VITALS: BP 130/74
[2021-10-26] MEDS: FLUTICASONE/VILANTEROL 200-25 MCG/INH INHALER [14] IH SCH (21:00)
[2021-10-27] VITALS (7 sets, daily range): BP systolic 111–153; BP diastolic 68–85
[2021-10-27] MEDS: CefTRIAXone 1 GM/DEXTROSE 50 ML IV SCH (00:48)
[2021-10-27] MEDS: IPRATROPIUM BROMIDE 0.5 MG/2.5 ML NEB SOLUTION NEB SCH ×4 (01:48→19:44)
[2021-10-27] MEDS: ALBUTEROL SULFATE 2.5 MG/0.5 ML NEB SOLUTION NEB SCH ×4 (01:48→19:44)
[2021-10-27] MEDS: MethylPREDNISolone SOD SUCC 125 MG/2 ML VIAL IVP SCH ×3 (06:08→17:18)
[2021-10-27] MEDS: DOCUSATE SODIUM 100 MG CAPSULE PO SCH ×2 (09:00→20:42)
[2021-10-27] MEDS: HEPARIN SODIUM,PORCINE 5,000 UNITS/ML VIAL SQ SCH ×2 (09:04→15:56)
[2021-10-27] MEDS: BENZONATATE 100 MG CAPSULE PO SCH ×3 (09:05→20:42)
[2021-10-27] MEDS: SODIUM CHLORIDE 1 GM TABLET PO SCH ×4 (09:05→20:42)
[2021-10-27] MEDS: GuaiFENesin SR 600 MG ER TABLET PO SCH ×2 (09:05→20:42)
[2021-10-27] MEDS: PANTOPRAZOLE SODIUM 40 MG DR TABLET PO SCH (09:05)
[2021-10-27] MEDS ORDERED: GADOTERATE MEGLUMINE 10 MMOL/20 ML VIAL IVP ONE (14:50)
[2021-10-27] MEDS: FLUTICASONE/VILANTEROL 200-25 MCG/INH INHALER [14] IH SCH (20:42)
[2021-10-27] MEDS: AZITHROMYCIN 500 MG/NS 250 ML IV SCH (23:55)
[2021-10-28] MEDS: MethylPREDNISolone SOD SUCC 125 MG/2 ML VIAL IVP SCH ×5 (00:10→23:40)
[2021-10-28] MEDS: HEPARIN SODIUM,PORCINE 5,000 UNITS/ML VIAL SQ SCH ×4 (00:11→23:40)
[2021-10-28] MEDS: CefTRIAXone 1 GM/DEXTROSE 50 ML IV SCH (01:00)
[2021-10-28] MEDS: ALBUTEROL SULFATE 2.5 MG/0.5 ML NEB SOLUTION NEB SCH ×4 (02:45→19:49)
[2021-10-28] MEDS: IPRATROPIUM BROMIDE 0.5 MG/2.5 ML NEB SOLUTION NEB SCH ×4 (02:46→19:49)
[2021-10-28 04:59] VITALS: BP 140/86
[2021-10-28] MEDS ORDERED: FLUT1BLS IH (07:10)
[2021-10-28] MEDS ORDERED: IPRA3AMP24 NEB (07:10)
[2021-10-28] MEDS ORDERED: FLUT1AER IH (07:10)
[2021-10-28] MEDS ORDERED: PRED-554 PO (07:10)
[2021-10-28] MEDS ORDERED: THIA100T80 PO (07:12)
[2021-10-28] MEDS ORDERED: FOLI0.4T6 PO (07:12)
[2021-10-28 07:32] VITALS: BP 148/82
[2021-10-28] MEDS: BENZONATATE 100 MG CAPSULE PO SCH ×3 (08:46→20:34)
[2021-10-28] MEDS: DOCUSATE SODIUM 100 MG CAPSULE PO SCH ×2 (08:46→20:34)
[2021-10-28] MEDS: GuaiFENesin SR 600 MG ER TABLET PO SCH ×2 (08:46→20:34)
[2021-10-28] MEDS: PANTOPRAZOLE SODIUM 40 MG DR TABLET PO SCH (08:47)
[2021-10-28] MEDS: SODIUM CHLORIDE 1 GM TABLET PO SCH ×4 (08:48→20:34)
[2021-10-28] MEDS: MAGNESIUM HYDROXIDE SUSPENSION 30 ML UDCUP PO PRN (08:51)
[2021-10-28 11:07] VITALS: BP 141/94
[2021-10-28 11:41] LABS: BASOPHILS % (AUTO) 0.1 % (0.0-2.0); EOSINOPHILS % (AUTO) 0 % (1.0-6.0); HEMATOCRIT 24.9 % (41-53); HEMOGLOBIN 8.2 g/dL (13.5-17.5); LYMPHOCYTES # (AUTO) 0.2 K/uL (1.0-4.8); MEAN CORPUSCULAR HEMOGLOBIN 33.1 pg (26.0-34.0); MEAN CORPUSCULAR HGB CONC 32.8 G/dL (31.0-37.0); MEAN CORPUSCULAR VOLUME 101 fL (80-100); MONOCYTES # (AUTO) 0.4 K/uL (0.1-1.0); MONOCYTES % (AUTO) 4.7 % (2.0-9.0); NEUTROPHILS # (AUTO) 7.1 K/uL (1.8-7.7); PLATELET COUNT (AUTO) 313 K/uL (150-450); RED BLOOD CELL COUNT(AUTO) 2.48 MIL/uL (4.50-5.90)
[2021-10-28 11:44] LABS: NEUTROPHILS % (AUTO) 92.2 % (40.0-70.0)
[2021-10-28] MEDS ORDERED: IPRA4AER IH (11:56)
[2021-10-28 12:17] LABS: ALBUMIN 2.9 g/dL (3.4-5.0); BILIRUBIN,TOTAL 0.5 mg/dL (0.1-1.0); CALCIUM, TOTAL 9.2 mg/dL (8.8-10.5); CREATININE 1.9 mg/dL (0.60-1.30); POTASSIUM 3.7 mmol/L (3.5-5.1); TOTAL PROTEIN, SERUM 5.9 g/dL (6.4-8.2)
[2021-10-28 15:43] VITALS: BP 108/69
[2021-10-28 20:03] VITALS: BP 146/88
[2021-10-28] MEDS: FLUTICASONE/VILANTEROL 200-25 MCG/INH INHALER [14] IH SCH (20:34)
[2021-10-28] MEDS: AZITHROMYCIN 500 MG/NS 250 ML IV SCH (23:40)
[2021-10-29 00:29] VITALS: BP 159/83
[2021-10-29] MEDS ORDERED: LORazepam 2 MG/ML VIAL IVP ONE (01:30)
[2021-10-29] MEDS: CefTRIAXone 1 GM/DEXTROSE 50 ML IV SCH (01:40)
[2021-10-29] MEDS: ALBUTEROL SULFATE 2.5 MG/0.5 ML NEB SOLUTION NEB SCH ×4 (02:00→20:02)
[2021-10-29] MEDS: IPRATROPIUM BROMIDE 0.5 MG/2.5 ML NEB SOLUTION NEB SCH ×4 (02:00→20:01)
[2021-10-29 04:28] VITALS: BP 142/73
[2021-10-29] MEDS: MethylPREDNISolone SOD SUCC 125 MG/2 ML VIAL IVP SCH ×3 (04:57→18:00)
[2021-10-29] MEDS: HEPARIN SODIUM,PORCINE 5,000 UNITS/ML VIAL SQ SCH ×2 (08:00→16:59)
[2021-10-29 08:25] VITALS: BP 146/85
[2021-10-29] MEDS: SODIUM CHLORIDE 1 GM TABLET PO SCH ×4 (10:49→21:35)
[2021-10-29] MEDS: DOCUSATE SODIUM 100 MG CAPSULE PO SCH ×2 (10:49→21:35)
[2021-10-29] MEDS: GuaiFENesin SR 600 MG ER TABLET PO SCH ×2 (10:50→21:35)
[2021-10-29] MEDS: BENZONATATE 100 MG CAPSULE PO SCH ×3 (10:52→21:35)
[2021-10-29] MEDS: PANTOPRAZOLE SODIUM 40 MG DR TABLET PO SCH (10:53)
[2021-10-29 11:52] VITALS: BP 135/78
[2021-10-29 12:53] LABS: GLUCOMETER DEV NAME(LOC) 5S.1B; GLUCOSE,POINT OF CARE 122 MG/DL (70-110)
[2021-10-29 16:03] VITALS: BP 115/61
[2021-10-29] MEDS ORDERED: AZITHROMYCIN 500 MG TABLET PO ONE (20:00)
[2021-10-29 20:43] VITALS: BP 133/73
[2021-10-29] MEDS: FLUTICASONE/VILANTEROL 200-25 MCG/INH INHALER [14] IH SCH (21:36)
[2021-10-29] MEDS: AZITHROMYCIN 500 MG/NS 250 ML IV SCH (23:00)
[2021-10-30] VITALS (7 sets, daily range): BP systolic 126–151; BP diastolic 62–110
[2021-10-30] MEDS ORDERED: PredniSONE 20 MG TABLET PO ONE
[2021-10-30] MEDS: CefTRIAXone 1 GM/DEXTROSE 50 ML IV SCH (00:38)
[2021-10-30] MEDS: HEPARIN SODIUM,PORCINE 5,000 UNITS/ML VIAL SQ SCH ×5 (00:46→23:26)
[2021-10-30] MEDS ORDERED: LIDOCAINE/PF 1% 2 ML VIAL IM ONE (01:00)
[2021-10-30] MEDS ORDERED: CefTRIAXone SODIUM 1 GM/VIAL IM ONE (01:00)
[2021-10-30] MEDS: IPRATROPIUM BROMIDE 0.5 MG/2.5 ML NEB SOLUTION NEB SCH ×4 (03:25→20:15)
[2021-10-30] MEDS: ALBUTEROL SULFATE 2.5 MG/0.5 ML NEB SOLUTION NEB SCH ×4 (03:26→20:15)
[2021-10-30] MEDS: MethylPREDNISolone SOD SUCC 125 MG/2 ML VIAL IVP SCH ×5 (06:00→23:26)
[2021-10-30] MEDS: GuaiFENesin SR 600 MG ER TABLET PO SCH ×3 (09:00→21:00)
[2021-10-30] MEDS: DOCUSATE SODIUM 100 MG CAPSULE PO SCH ×3 (09:00→21:00)
[2021-10-30] MEDS: BENZONATATE 100 MG CAPSULE PO SCH ×4 (09:00→21:00)
[2021-10-30] MEDS: SODIUM CHLORIDE 1 GM TABLET PO SCH ×3 (09:00→13:00)
[2021-10-30] MEDS: PANTOPRAZOLE SODIUM 40 MG DR TABLET PO SCH (09:45)
[2021-10-30 10:51] LABS: ABG BASE EXCESS -2.5 mmol/L (-2.0-3.0); ABG CARBOXYHEMOGLOBIN 0.2 % (0.0-1.5); ABG HCO3 22.9 mmol/L (22.0-26.0); ABG METHEMOGLOBIN 0.3 % (0.0-1.5); ABG OXYGEN CONTENT 11.7 mL/dL (15.0-23.0); ABG OXYGEN SATURATION 91.3 % (95.0-98.0); ABG OXYHEMOGLOBIN 90.8 % (94.0-100.0); ABG PCO2 27 mmHg (35-45); ABG PH 7.506 (7.35-7.450); ABG TOTAL HEMOGLOBIN 9.1 G/dL (12.0-18.0); PO2, ARTERIAL BG 62.8 mmHg (79.0-87.0); SOURCE, BLOOD GAS ARTERIAL; TEMPERATURE, FAHRENHEIT, BG 97.8 FAHREN (96.0-98.6)
[2021-10-30 10:53] LABS: SITE, BLOOD GAS RT RADIAL
[2021-10-30 10:54] LABS: ABG A-A DIFF O2 55.3 mmHg (10-20.0)
[2021-10-30 11:36] LABS: BASOPHILS % (AUTO) 0.1 % (0.0-2.0); EOSINOPHILS % (AUTO) 0 % (1.0-6.0); HEMATOCRIT 26.9 % (41-53); HEMOGLOBIN 8.9 g/dL (13.5-17.5); LYMPHOCYTES # (AUTO) 0.4 K/uL (1.0-4.8); LYMPHOCYTES % (AUTO) 5.3 % (22.0-44.0); MEAN CORPUSCULAR HEMOGLOBIN 33.4 pg (26.0-34.0); MEAN CORPUSCULAR HGB CONC 33.1 G/dL (31.0-37.0); MEAN CORPUSCULAR VOLUME 101 fL (80-100); MONOCYTES # (AUTO) 0.3 K/uL (0.1-1.0); MONOCYTES % (AUTO) 4.5 % (2.0-9.0); NEUTROPHILS # (AUTO) 6.5 K/uL (1.8-7.7); PLATELET COUNT (AUTO) 236 K/uL (150-450); RED BLOOD CELL COUNT(AUTO) 2.66 MIL/uL (4.50-5.90); RED CELL DISTRIBUTION WIDTH 25.4 % (11.5-14.5)
[2021-10-30 11:43] LABS: NEUTROPHILS % (AUTO) 90.1 % (40.0-70.0)
[2021-10-30 11:44] LABS: CALCIUM, TOTAL 9.2 mg/dL (8.8-10.5); CREATININE 1.3 mg/dL (0.60-1.30)
[2021-10-30] MEDS ORDERED: DEXTROSE 5%-WATER 1,000 ML IV ONE (11:45)
[2021-10-30] MEDS: THIAMINE 100 MG/ML 2 ML VIAL IVP SCH (13:45)
[2021-10-30] MEDS: POTASSIUM CHL 10 MEQ/WATER 50 ML IV SCH ×2 (13:52→16:14)
[2021-10-30] MEDS: DEXTROSE 5%-WATER 1,000 ML IV SCH ×2 (13:52→23:29)
[2021-10-30] MEDS: NICOTINE 14 MG/24 HOUR PATCH TD SCH (18:30)
[2021-10-30] MEDS: BUDESONIDE 0.5 MG/2 ML NEB SOLUTION NEB SCH (20:15)
[2021-10-30 20:44] LABS: CALCIUM, TOTAL 8.9 mg/dL (8.8-10.5); CREATININE 1.55 mg/dL (0.60-1.30); POTASSIUM 3.8 mmol/L (3.5-5.1)
[2021-10-30] MEDS ORDERED: SODIUM CHLORIDE 0.9% 500 ML IV ONE (23:01)
[2021-10-30] MEDS: AZITHROMYCIN 500 MG/NS 250 ML IV SCH (23:27)
[2021-10-31] VITALS (7 sets, daily range): BP systolic 111–154; BP diastolic 16–82
[2021-10-31] MEDS: CefTRIAXone 1 GM/DEXTROSE 50 ML IV SCH (00:36)
[2021-10-31] MEDS: ALBUTEROL SULFATE 2.5 MG/0.5 ML NEB SOLUTION NEB SCH ×4 (01:56→20:39)
[2021-10-31] MEDS: IPRATROPIUM BROMIDE 0.5 MG/2.5 ML NEB SOLUTION NEB SCH ×4 (01:56→20:39)
[2021-10-31] MEDS: MethylPREDNISolone SOD SUCC 125 MG/2 ML VIAL IVP SCH ×4 (05:28→23:31)
[2021-10-31 05:44] LABS: CREATININE 1.74 mg/dL (0.60-1.30); POTASSIUM 4.3 mmol/L (3.5-5.1)
[2021-10-31] MEDS: BUDESONIDE 0.5 MG/2 ML NEB SOLUTION NEB SCH ×2 (08:29→20:40)
[2021-10-31] MEDS: DOCUSATE SODIUM 100 MG CAPSULE PO SCH ×2 (09:29→20:32)
[2021-10-31] MEDS: PANTOPRAZOLE SODIUM 40 MG DR TABLET PO SCH (09:29)
[2021-10-31] MEDS: FOLIC ACID 1 MG TABLET PO SCH (09:29)
[2021-10-31] MEDS: HEPARIN SODIUM,PORCINE 5,000 UNITS/ML VIAL SQ SCH ×3 (09:29→23:31)
[2021-10-31] MEDS: GuaiFENesin SR 600 MG ER TABLET PO SCH ×2 (09:31→20:32)
[2021-10-31] MEDS: DEXTROSE 5%-WATER 1,000 ML IV SCH ×2 (10:31→23:32)
[2021-10-31] MEDS: BENZONATATE 100 MG CAPSULE PO SCH ×3 (12:01→20:32)
[2021-10-31] MEDS: NICOTINE 14 MG/24 HOUR PATCH TD SCH (12:02)
[2021-10-31] MEDS: THIAMINE 100 MG/ML 2 ML VIAL IVP SCH (14:19)
[2021-10-31 18:00] LABS: CALCIUM, TOTAL 8.6 mg/dL (8.8-10.5); CREATININE 1.75 mg/dL (0.60-1.30); POTASSIUM 4.5 mmol/L (3.5-5.1)
[2021-10-31] MEDS ORDERED: SODIUM CHLORIDE 0.9% 250 ML IV ONE (20:34)
[2021-10-31] MEDS: AZITHROMYCIN 500 MG/NS 250 ML IV SCH (23:31)
[2021-11-01] VITALS (7 sets, daily range): BP systolic 122–154; BP diastolic 68–87
[2021-11-01] MEDS: CefTRIAXone 1 GM/DEXTROSE 50 ML IV SCH (01:45)
[2021-11-01] MEDS: IPRATROPIUM BROMIDE 0.5 MG/2.5 ML NEB SOLUTION NEB SCH ×4 (02:55→20:34)
[2021-11-01] MEDS: ALBUTEROL SULFATE 2.5 MG/0.5 ML NEB SOLUTION NEB SCH ×4 (02:55→20:34)
[2021-11-01] MEDS: MethylPREDNISolone SOD SUCC 125 MG/2 ML VIAL IVP SCH ×2 (05:32→12:54)
[2021-11-01 07:31] LABS: CALCIUM, TOTAL 8.7 mg/dL (8.8-10.5); CREATININE 1.49 mg/dL (0.60-1.30); MAGNESIUM 2.4 mg/dL (1.80-2.40); PHOSPHORUS 3.9 mg/dL (2.5-4.9); POTASSIUM 4.1 mmol/L (3.5-5.1)
[2021-11-01] MEDS: THIAMINE 100 MG/ML 2 ML VIAL IVP SCH (09:02)
[2021-11-01] MEDS: HEPARIN SODIUM,PORCINE 5,000 UNITS/ML VIAL SQ SCH ×3 (09:04→23:24)
[2021-11-01] MEDS: NICOTINE 14 MG/24 HOUR PATCH TD SCH (09:09)
[2021-11-01] MEDS: BUDESONIDE 0.5 MG/2 ML NEB SOLUTION NEB SCH ×2 (09:11→20:34)
[2021-11-01] MEDS: GuaiFENesin SR 600 MG ER TABLET PO SCH ×2 (10:55→20:51)
[2021-11-01] MEDS: FOLIC ACID 1 MG TABLET PO SCH (10:55)
[2021-11-01] MEDS: PANTOPRAZOLE SODIUM 40 MG DR TABLET PO SCH (10:55)
[2021-11-01] MEDS: BENZONATATE 100 MG CAPSULE PO SCH ×3 (10:55→20:49)
[2021-11-01] MEDS: DOCUSATE SODIUM 100 MG CAPSULE PO SCH ×2 (10:55→20:51)
[2021-11-01] MEDS: DEXTROSE 5%-WATER 1,000 ML IV SCH (15:00)
[2021-11-01 16:55] LABS: CALCIUM, TOTAL 8.8 mg/dL (8.8-10.5); CREATININE 1.48 mg/dL (0.60-1.30); POTASSIUM 4.2 mmol/L (3.5-5.1)
[2021-11-01] MEDS: MethylPREDNISolone SOD SUCC 40 MG/ML VIAL IVP SCH ×2 (17:59→23:24)
[2021-11-01] MEDS: AZITHROMYCIN 500 MG/NS 250 ML IV SCH (23:20)
[2021-11-02] MEDS: CefTRIAXone 1 GM/DEXTROSE 50 ML IV SCH (01:36)
[2021-11-02] MEDS: DEXTROSE 5%-WATER 1,000 ML IV SCH ×3 (01:41→18:08)
[2021-11-02] MEDS: ALBUTEROL SULFATE 2.5 MG/0.5 ML NEB SOLUTION NEB SCH ×4 (02:56→19:39)
[2021-11-02] MEDS: IPRATROPIUM BROMIDE 0.5 MG/2.5 ML NEB SOLUTION NEB SCH ×4 (02:56→19:39)
[2021-11-02 03:56] VITALS: BP 143/85
[2021-11-02 06:14] LABS: ANION GAP 8 mmol/L (8-16); CALCIUM, TOTAL 8.8 mg/dL (8.8-10.5); CARBON DIOXIDE 24 mmol/L (22-29); CHLORIDE 111 mmol/L (98-107); CREATININE 1.19 mg/dL (0.60-1.30); GLUCOSE,RANDOM 119 mg/dL (70-110); PHOSPHORUS 3.4 mg/dL (2.5-4.9); POTASSIUM 4.2 mmol/L (3.5-5.1); SODIUM SERUM 143 mmol/L (136-145); UREA NITROGEN, BLOOD 43 mg/dL (7-18)
[2021-11-02] MEDS: MethylPREDNISolone SOD SUCC 40 MG/ML VIAL IVP SCH ×3 (06:22→18:05)
[2021-11-02 06:32] LABS: GLOMERULAR FILTR. RATE CALC > 60 mL/min (>60)
[2021-11-02] MEDS: BUDESONIDE 0.5 MG/2 ML NEB SOLUTION NEB SCH ×2 (08:25→19:39)
[2021-11-02 08:30] VITALS: BP 150/94
[2021-11-02] MEDS: FOLIC ACID 1 MG TABLET PO SCH (08:55)
[2021-11-02] MEDS: BENZONATATE 100 MG CAPSULE PO SCH ×3 (08:55→20:35)
[2021-11-02] MEDS: GuaiFENesin SR 600 MG ER TABLET PO SCH ×2 (08:55→20:35)
[2021-11-02] MEDS: DOCUSATE SODIUM 100 MG CAPSULE PO SCH ×3 (08:55→20:43)
[2021-11-02] MEDS: PANTOPRAZOLE SODIUM 40 MG DR TABLET PO SCH (08:55)
[2021-11-02] MEDS: HEPARIN SODIUM,PORCINE 5,000 UNITS/ML VIAL SQ SCH ×2 (08:56→16:38)
[2021-11-02] MEDS: THIAMINE 100 MG/ML 2 ML VIAL IVP SCH (08:56)
[2021-11-02] MEDS: NICOTINE 14 MG/24 HOUR PATCH TD SCH (08:56)
[2021-11-02 12:04] VITALS: BP 134/87
[2021-11-02 15:25] VITALS: BP 152/86
[2021-11-02 19:36] VITALS: BP 123/70
[2021-11-03 00:01] VITALS: BP 126/79
[2021-11-03] MEDS: MethylPREDNISolone SOD SUCC 40 MG/ML VIAL IVP SCH ×4 (00:43→18:16)
[2021-11-03] MEDS: HEPARIN SODIUM,PORCINE 5,000 UNITS/ML VIAL SQ SCH ×3 (00:44→16:19)
[2021-11-03] MEDS: ALBUTEROL SULFATE 2.5 MG/0.5 ML NEB SOLUTION NEB SCH ×4 (02:00→20:15)
[2021-11-03] MEDS: IPRATROPIUM BROMIDE 0.5 MG/2.5 ML NEB SOLUTION NEB SCH ×4 (02:00→20:14)
[2021-11-03 04:32] VITALS: BP 136/63
[2021-11-03 05:58] LABS: ANION GAP 6 mmol/L (8-16); CARBON DIOXIDE 25 mmol/L (22-29); CHLORIDE 109 mmol/L (98-107); GLUCOSE,RANDOM 110 mg/dL (70-110); POTASSIUM 4.4 mmol/L (3.5-5.1); SODIUM SERUM 140 mmol/L (136-145); UREA NITROGEN, BLOOD 41 mg/dL (7-18)
[2021-11-03 06:03] LABS: GLOMERULAR FILTR. RATE CALC > 60 mL/min (>60)
[2021-11-03 07:37] VITALS: BP 150/99
[2021-11-03] MEDS: BUDESONIDE 0.5 MG/2 ML NEB SOLUTION NEB SCH ×2 (07:55→20:14)
[2021-11-03] MEDS: PANTOPRAZOLE SODIUM 40 MG DR TABLET PO SCH (08:08)
[2021-11-03] MEDS: BENZONATATE 100 MG CAPSULE PO SCH ×3 (08:08→20:35)
[2021-11-03] MEDS: THIAMINE 100 MG/ML 2 ML VIAL IVP SCH (08:08)
[2021-11-03] MEDS: FOLIC ACID 1 MG TABLET PO SCH (08:08)
[2021-11-03] MEDS: GuaiFENesin SR 600 MG ER TABLET PO SCH ×2 (08:08→20:35)
[2021-11-03] MEDS: DOCUSATE SODIUM 100 MG CAPSULE PO SCH ×2 (08:09→20:36)
[2021-11-03] MEDS: NICOTINE 14 MG/24 HOUR PATCH TD SCH (08:09)
[2021-11-03 11:09] VITALS: BP 139/89
[2021-11-03 15:35] VITALS: BP 142/76
[2021-11-03 20:08] VITALS: BP 129/75
[2021-11-04] VITALS (7 sets, daily range): BP systolic 106–153; BP diastolic 74–102
[2021-11-04] MEDS: MethylPREDNISolone SOD SUCC 40 MG/ML VIAL IVP SCH ×2 (00:08→05:48)
[2021-11-04] MEDS: HEPARIN SODIUM,PORCINE 5,000 UNITS/ML VIAL SQ SCH ×4 (00:08→23:30)
[2021-11-04] MEDS: ALBUTEROL SULFATE 2.5 MG/0.5 ML NEB SOLUTION NEB SCH ×4 (02:00→20:18)
[2021-11-04] MEDS: IPRATROPIUM BROMIDE 0.5 MG/2.5 ML NEB SOLUTION NEB SCH ×4 (02:00→20:18)
[2021-11-04 07:49] LABS: ANION GAP 9 mmol/L (8-16); CARBON DIOXIDE 23 mmol/L (22-29); CHLORIDE 111 mmol/L (98-107); CREATININE 0.95 mg/dL (0.60-1.30); GLOMERULAR FILTR. RATE CALC > 60 mL/min (>60); GLUCOSE,RANDOM 111 mg/dL (70-110); PHOSPHORUS 3.8 mg/dL (2.5-4.9); POTASSIUM 4.6 mmol/L (3.5-5.1); SODIUM SERUM 143 mmol/L (136-145); UREA NITROGEN, BLOOD 40 mg/dL (7-18)
[2021-11-04] MEDS: BUDESONIDE 0.5 MG/2 ML NEB SOLUTION NEB SCH ×2 (08:29→20:18)
[2021-11-04] MEDS ORDERED: PredniSONE 10 MG TABLET PO SCH (09:00)
[2021-11-04] MEDS: DOCUSATE SODIUM 100 MG CAPSULE PO SCH ×2 (09:00→22:18)
[2021-11-04] MEDS ORDERED: AmLODIPine BESYLATE 2.5 MG TABLET PO SCH (10:00)
[2021-11-04] MEDS: NICOTINE 14 MG/24 HOUR PATCH TD SCH (10:57)
[2021-11-04] MEDS: FOLIC ACID 1 MG TABLET PO SCH (10:58)
[2021-11-04] MEDS: GuaiFENesin SR 600 MG ER TABLET PO SCH ×2 (10:58→22:18)
[2021-11-04] MEDS: BENZONATATE 100 MG CAPSULE PO SCH ×3 (10:58→22:18)
[2021-11-04] MEDS: THIAMINE 100 MG/ML 2 ML VIAL IVP SCH (10:58)
[2021-11-04] MEDS: PANTOPRAZOLE SODIUM 40 MG DR TABLET PO SCH (10:59)
[2021-11-04 15:48] LABS: BASOPHILS % (AUTO) 0.1 % (0.0-2.0); EOSINOPHILS % (AUTO) 0 % (1.0-6.0); HEMATOCRIT 30.4 % (41-53); HEMOGLOBIN 9.9 g/dL (13.5-17.5); LYMPHOCYTES # (AUTO) 0.8 K/uL (1.0-4.8); LYMPHOCYTES % (AUTO) 4.1 % (22.0-44.0); MEAN CORPUSCULAR HEMOGLOBIN 32.9 pg (26.0-34.0); MEAN CORPUSCULAR HGB CONC 32.6 G/dL (31.0-37.0); MEAN CORPUSCULAR VOLUME 101 fL (80-100); MONOCYTES # (AUTO) 1.3 K/uL (0.1-1.0); MONOCYTES % (AUTO) 6.8 % (2.0-9.0); NEUTROPHILS # (AUTO) 17.2 K/uL (1.8-7.7); PLATELET COUNT (AUTO) 120 K/uL (150-450); RED BLOOD CELL COUNT(AUTO) 3.01 MIL/uL (4.50-5.90); RED CELL DISTRIBUTION WIDTH 24.2 % (11.5-14.5)
[2021-11-05] MEDS: IPRATROPIUM BROMIDE 0.5 MG/2.5 ML NEB SOLUTION NEB SCH ×4 (02:59→20:04)
[2021-11-05] MEDS: ALBUTEROL SULFATE 2.5 MG/0.5 ML NEB SOLUTION NEB SCH ×4 (02:59→20:04)
[2021-11-05 04:15] VITALS: BP 129/74
[2021-11-05 07:25] VITALS: BP 133/71
[2021-11-05] MEDS: HEPARIN SODIUM,PORCINE 5,000 UNITS/ML VIAL SQ SCH ×3 (08:00→15:19)
[2021-11-05] MEDS: BUDESONIDE 0.5 MG/2 ML NEB SOLUTION NEB SCH ×2 (08:00→20:04)
[2021-11-05] MEDS: NICOTINE 14 MG/24 HOUR PATCH TD SCH (09:00)
[2021-11-05] MEDS: BENZONATATE 100 MG CAPSULE PO SCH ×3 (09:17→20:54)
[2021-11-05] MEDS: PANTOPRAZOLE SODIUM 40 MG DR TABLET PO SCH (09:17)
[2021-11-05] MEDS: FOLIC ACID 1 MG TABLET PO SCH (09:18)
[2021-11-05] MEDS: PredniSONE 20 MG TABLET PO SCH (09:18)
[2021-11-05] MEDS: THIAMINE 100 MG/ML 2 ML VIAL IVP SCH (09:18)
[2021-11-05] MEDS: GuaiFENesin SR 600 MG ER TABLET PO SCH ×2 (09:18→20:54)
[2021-11-05] MEDS: DOCUSATE SODIUM 100 MG CAPSULE PO SCH ×2 (09:18→20:54)
[2021-11-05 10:35] VITALS: BP 120/65
[2021-11-05 15:02] VITALS: BP 111/64
[2021-11-05 19:34] VITALS: BP 104/61
[2021-11-05] MEDS: MAGNESIUM HYDROXIDE SUSPENSION 30 ML UDCUP PO PRN (20:54)
[2021-11-06 00:05] VITALS: BP 111/72
[2021-11-06] MEDS: HEPARIN SODIUM,PORCINE 5,000 UNITS/ML VIAL SQ SCH ×3 (00:19→15:43)
[2021-11-06 01:15] LABS: APPEARANCE,URINE HAZY (CLEAR); BILIRUBIN,URINE NEGATIVE (NEGATIVE); GLUCOSE, URINE (UA) TRACE mg/dL (NEGATIVE); KETONES,URINE NEGATIVE (NEGATIVE); LEUKOCYTE ESTERASE ,URINE LARGE (NEGATIVE); NITRATE,URINE NEGATIVE (NEGATIVE); OCCULT BLOOD,URINE NEGATIVE (NEGATIVE); PH,URINE 5.5 (5.0-8.0); PROTEIN,URINE 30-70 mg/dL (NEGATIVE); SPECIFIC GRAVITIY, URINE 1.026 (1.003-1.030); UROBILINOGEN,URINE <=1.0 mg/dL (<=1.0)
[2021-11-06 01:39] LABS: BACTERIA,URINE Few /HPF (None Seen); RBC,URINE 0-2 /HPF (0-2); YEAST,URINE Moderate /HPF (None Seen)
[2021-11-06] MEDS: IPRATROPIUM BROMIDE 0.5 MG/2.5 ML NEB SOLUTION NEB SCH ×4 (02:48→20:11)
[2021-11-06] MEDS: ALBUTEROL SULFATE 2.5 MG/0.5 ML NEB SOLUTION NEB SCH ×4 (02:48→20:11)
[2021-11-06 04:17] VITALS: BP 135/74
[2021-11-06 07:33] VITALS: BP 109/71
[2021-11-06] MEDS: DOCUSATE SODIUM 100 MG CAPSULE PO SCH ×2 (08:29→20:55)
[2021-11-06] MEDS: GuaiFENesin SR 600 MG ER TABLET PO SCH ×2 (08:29→20:55)
[2021-11-06] MEDS: BENZONATATE 100 MG CAPSULE PO SCH ×3 (08:29→20:55)
[2021-11-06] MEDS: PANTOPRAZOLE SODIUM 40 MG DR TABLET PO SCH (08:30)
[2021-11-06] MEDS: FOLIC ACID 1 MG TABLET PO SCH (08:30)
[2021-11-06] MEDS: PredniSONE 20 MG TABLET PO SCH (08:30)
[2021-11-06] MEDS: THIAMINE 100 MG/ML 2 ML VIAL IVP SCH (08:31)
[2021-11-06] MEDS: NICOTINE 14 MG/24 HOUR PATCH TD SCH (08:31)
[2021-11-06 08:37] LABS: EOSINOPHILS % (AUTO) 0.5 % (1.0-6.0); HEMATOCRIT 25.7 % (41-53); HEMOGLOBIN 8.4 g/dL (13.5-17.5); LYMPHOCYTES # (AUTO) 0.8 K/uL (1.0-4.8); LYMPHOCYTES % (AUTO) 5.8 % (22.0-44.0); MEAN CORPUSCULAR HEMOGLOBIN 33.3 pg (26.0-34.0); MEAN CORPUSCULAR HGB CONC 32.7 G/dL (31.0-37.0); MEAN CORPUSCULAR VOLUME 102 fL (80-100); MONOCYTES # (AUTO) 0.9 K/uL (0.1-1.0); MONOCYTES % (AUTO) 6.6 % (2.0-9.0); NEUTROPHILS # (AUTO) 11.7 K/uL (1.8-7.7); PLATELET COUNT (AUTO) 127 K/uL (150-450); RED BLOOD CELL COUNT(AUTO) 2.52 MIL/uL (4.50-5.90); RED CELL DISTRIBUTION WIDTH 24.6 % (11.5-14.5)
[2021-11-06 08:41] LABS: NEUTROPHILS % (AUTO) 87.1 % (40.0-70.0)
[2021-11-06 08:44] LABS: CALCIUM, TOTAL 8.7 mg/dL (8.8-10.5); CREATININE 1.22 mg/dL (0.60-1.30); POTASSIUM 3.7 mmol/L (3.5-5.1)
[2021-11-06] MEDS: BUDESONIDE 0.5 MG/2 ML NEB SOLUTION NEB SCH ×2 (08:45→20:11)
[2021-11-06] MEDS ORDERED: DEXTROSE 5%-WATER 1,000 ML IV ONE (09:30)
[2021-11-06 11:41] VITALS: BP 105/70
[2021-11-06 15:32] VITALS: BP 138/70
[2021-11-06] MEDS: NYSTATIN 500,000 UNITS/5 ML SUSPENSION UDCUP PO SCH ×2 (15:42→17:07)
[2021-11-06] MEDS: CIPROFLOXACIN HCL 250 MG TABLET PO SCH ×2 (15:42→20:55)
[2021-11-06] MEDS: FLUCONAZOLE 100 MG TABLET PO SCH (15:42)
[2021-11-06 19:41] LABS: GLUCOMETER DEV NAME(LOC) 5S.1B; GLUCOSE,POINT OF CARE 83 MG/DL (70-110)
[2021-11-06 19:41] LABS: GLUCOMETER DEV NAME(LOC) 5N.1C; GLUCOSE,POINT OF CARE 81 MG/DL (70-110)
[2021-11-06 19:42] LABS: GLUCOMETER DEV NAME(LOC) 5N.1C; GLUCOSE,POINT OF CARE 85 MG/DL (70-110)
[2021-11-06 19:42] LABS: GLUCOMETER DEV NAME(LOC) 5S.1B; GLUCOSE,POINT OF CARE 83 MG/DL (70-110)
[2021-11-06 20:45] VITALS: BP 130/77
[2021-11-07] VITALS (7 sets, daily range): BP systolic 117–139; BP diastolic 63–79
[2021-11-07] MEDS: NYSTATIN 500,000 UNITS/5 ML SUSPENSION UDCUP PO SCH ×4 (01:11→23:55)
[2021-11-07] MEDS: HEPARIN SODIUM,PORCINE 5,000 UNITS/ML VIAL SQ SCH ×4 (01:12→23:55)
[2021-11-07] MEDS: ALBUTEROL SULFATE 2.5 MG/0.5 ML NEB SOLUTION NEB SCH ×4 (01:40→20:16)
[2021-11-07] MEDS: IPRATROPIUM BROMIDE 0.5 MG/2.5 ML NEB SOLUTION NEB SCH ×4 (01:40→20:16)
[2021-11-07] MEDS: BUDESONIDE 0.5 MG/2 ML NEB SOLUTION NEB SCH ×2 (07:33→20:30)
[2021-11-07] MEDS: THIAMINE 100 MG/ML 2 ML VIAL IVP SCH (08:47)
[2021-11-07] MEDS: FLUCONAZOLE 100 MG TABLET PO SCH (08:48)
[2021-11-07] MEDS: CIPROFLOXACIN HCL 250 MG TABLET PO SCH ×2 (08:48→21:09)
[2021-11-07] MEDS: GuaiFENesin SR 600 MG ER TABLET PO SCH ×2 (08:48→21:09)
[2021-11-07] MEDS: PANTOPRAZOLE SODIUM 40 MG DR TABLET PO SCH (08:48)
[2021-11-07] MEDS: BENZONATATE 100 MG CAPSULE PO SCH ×3 (08:48→21:09)
[2021-11-07] MEDS: PredniSONE 20 MG TABLET PO SCH (08:48)
[2021-11-07] MEDS: NICOTINE 14 MG/24 HOUR PATCH TD SCH (08:49)
[2021-11-07] MEDS: FOLIC ACID 1 MG TABLET PO SCH (09:00)
[2021-11-07] MEDS: DOCUSATE SODIUM 100 MG CAPSULE PO SCH ×2 (09:00→21:09)
[2021-11-08] MEDS: IPRATROPIUM BROMIDE 0.5 MG/2.5 ML NEB SOLUTION NEB SCH ×4 (01:24→20:02)
[2021-11-08] MEDS: ALBUTEROL SULFATE 2.5 MG/0.5 ML NEB SOLUTION NEB SCH ×4 (01:24→20:02)
[2021-11-08 04:04] VITALS: BP 116/67
[2021-11-08 05:48] LABS: BASOPHILS % (AUTO) 0.1 % (0.0-2.0); EOSINOPHILS % (AUTO) 0.3 % (1.0-6.0); HEMATOCRIT 25.3 % (41-53); HEMOGLOBIN 8.1 g/dL (13.5-17.5); LYMPHOCYTES # (AUTO) 0.6 K/uL (1.0-4.8); LYMPHOCYTES % (AUTO) 4.9 % (22.0-44.0); MEAN CORPUSCULAR HEMOGLOBIN 33.2 pg (26.0-34.0); MEAN CORPUSCULAR HGB CONC 32.1 G/dL (31.0-37.0); MEAN CORPUSCULAR VOLUME 103 fL (80-100); MONOCYTES # (AUTO) 0.7 K/uL (0.1-1.0); MONOCYTES % (AUTO) 6.1 % (2.0-9.0); NEUTROPHILS # (AUTO) 10.9 K/uL (1.8-7.7); PLATELET COUNT (AUTO) 133 K/uL (150-450); RED BLOOD CELL COUNT(AUTO) 2.45 MIL/uL (4.50-5.90); RED CELL DISTRIBUTION WIDTH 23.5 % (11.5-14.5)
[2021-11-08 05:58] LABS: ANION GAP 5 mmol/L (8-16); CALCIUM, TOTAL 8.3 mg/dL (8.8-10.5); CARBON DIOXIDE 25 mmol/L (22-29); CHLORIDE 110 mmol/L (98-107); CREATININE 0.75 mg/dL (0.60-1.30); GLUCOSE,RANDOM 88 mg/dL (70-110); POTASSIUM 4.2 mmol/L (3.5-5.1); SODIUM SERUM 140 mmol/L (136-145); UREA NITROGEN, BLOOD 31 mg/dL (7-18)
[2021-11-08 06:25] LABS: GLOMERULAR FILTR. RATE CALC > 60 mL/min (>60)
[2021-11-08 07:13] LABS: NEUTROPHILS % (AUTO) 88.6 % (40.0-70.0)
[2021-11-08] MEDS: BUDESONIDE 0.5 MG/2 ML NEB SOLUTION NEB SCH ×2 (07:27→20:02)
[2021-11-08 07:50] VITALS: BP 113/67
[2021-11-08] MEDS: HEPARIN SODIUM,PORCINE 5,000 UNITS/ML VIAL SQ SCH ×3 (08:42→23:59)
[2021-11-08] MEDS: NYSTATIN 500,000 UNITS/5 ML SUSPENSION UDCUP PO SCH ×3 (08:42→23:41)
[2021-11-08] MEDS: CIPROFLOXACIN HCL 250 MG TABLET PO SCH ×2 (08:43→20:53)
[2021-11-08] MEDS: PANTOPRAZOLE SODIUM 40 MG DR TABLET PO SCH (08:43)
[2021-11-08] MEDS: DOCUSATE SODIUM 100 MG CAPSULE PO SCH ×2 (08:43→20:53)
[2021-11-08] MEDS: GuaiFENesin SR 600 MG ER TABLET PO SCH ×2 (08:43→20:53)
[2021-11-08] MEDS: FLUCONAZOLE 100 MG TABLET PO SCH (08:43)
[2021-11-08] MEDS: THIAMINE 100 MG/ML 2 ML VIAL IVP SCH (08:43)
[2021-11-08] MEDS: FOLIC ACID 1 MG TABLET PO SCH (08:43)
[2021-11-08] MEDS: PredniSONE 20 MG TABLET PO SCH (08:43)
[2021-11-08] MEDS: NICOTINE 14 MG/24 HOUR PATCH TD SCH (08:44)
[2021-11-08] MEDS: BENZONATATE 100 MG CAPSULE PO SCH ×3 (08:45→20:53)
[2021-11-08 11:25] VITALS: BP 107/64
[2021-11-08 16:45] VITALS: BP 114/65
[2021-11-08 19:30] VITALS: BP 113/70
[2021-11-08 23:50] VITALS: BP 103/62
[2021-11-09] MEDS: IPRATROPIUM BROMIDE 0.5 MG/2.5 ML NEB SOLUTION NEB SCH ×4 (01:45→21:06)
[2021-11-09] MEDS: ALBUTEROL SULFATE 2.5 MG/0.5 ML NEB SOLUTION NEB SCH ×4 (01:45→21:06)
[2021-11-09 03:45] VITALS: BP 118/64
[2021-11-09 07:50] VITALS: BP 111/68
[2021-11-09] MEDS: BUDESONIDE 0.5 MG/2 ML NEB SOLUTION NEB SCH ×2 (08:02→21:06)
[2021-11-09] MEDS: FOLIC ACID 1 MG TABLET PO SCH (08:55)
[2021-11-09] MEDS: GuaiFENesin SR 600 MG ER TABLET PO SCH ×2 (08:55→20:11)
[2021-11-09] MEDS: BENZONATATE 100 MG CAPSULE PO SCH ×3 (08:55→20:10)
[2021-11-09] MEDS: NYSTATIN 500,000 UNITS/5 ML SUSPENSION UDCUP PO SCH ×3 (08:55→23:26)
[2021-11-09] MEDS: DOCUSATE SODIUM 100 MG CAPSULE PO SCH ×2 (08:55→20:10)
[2021-11-09] MEDS: PredniSONE 20 MG TABLET PO SCH (08:55)
[2021-11-09] MEDS: PANTOPRAZOLE SODIUM 40 MG DR TABLET PO SCH (08:55)
[2021-11-09] MEDS: CIPROFLOXACIN HCL 250 MG TABLET PO SCH ×2 (08:55→20:10)
[2021-11-09] MEDS: HEPARIN SODIUM,PORCINE 5,000 UNITS/ML VIAL SQ SCH ×3 (08:55→23:26)
[2021-11-09] MEDS: NICOTINE 14 MG/24 HOUR PATCH TD SCH (08:56)
[2021-11-09] MEDS: THIAMINE 100 MG/ML 2 ML VIAL IVP SCH (08:57)
[2021-11-09] MEDS: FLUCONAZOLE 100 MG TABLET PO SCH (08:58)
[2021-11-09 11:50] VITALS: BP 98/63
[2021-11-09] MEDS ORDERED: CIPR250T6 PO (14:07)
[2021-11-09] MEDS ORDERED: DOCU-385 PO (14:08)
[2021-11-09] MEDS ORDERED: BENZ-70 PO (14:08)
[2021-11-09] MEDS ORDERED: FLUC100T68 PO (14:09)
[2021-11-09] MEDS ORDERED: HEPA500018 SQ (14:10)
[2021-11-09] MEDS ORDERED: NICO-703 TD (14:10)
[2021-11-09] MEDS ORDERED: GUAIF600 PO (14:10)
[2021-11-09] MEDS ORDERED: PANT-31 PO (14:11)
[2021-11-09] MEDS ORDERED: NYST100033 PO (14:11)
[2021-11-09] MEDS ORDERED: AUD NEB (14:12)
[2021-11-09] MEDS ORDERED: IPRNEB IH (14:13)
[2021-11-09] MEDS ORDERED: BUDE0.5A NEB (14:14)
[2021-11-09 16:20] VITALS: BP 97/57
[2021-11-09 19:50] VITALS: BP 111/58
[2021-11-09 23:35] VITALS: BP 122/64
[2021-11-10] MEDS: ALBUTEROL SULFATE 2.5 MG/0.5 ML NEB SOLUTION NEB SCH ×3 (03:02→14:05)
[2021-11-10] MEDS: IPRATROPIUM BROMIDE 0.5 MG/2.5 ML NEB SOLUTION NEB SCH ×3 (03:02→14:05)
[2021-11-10 04:00] VITALS: BP 131/61
[2021-11-10 07:25] VITALS: BP 117/86
[2021-11-10] MEDS: BUDESONIDE 0.5 MG/2 ML NEB SOLUTION NEB SCH (08:21)
[2021-11-10] MEDS: FLUCONAZOLE 100 MG TABLET PO SCH (08:43)
[2021-11-10] MEDS: CIPROFLOXACIN HCL 250 MG TABLET PO SCH (08:43)
[2021-11-10] MEDS: BENZONATATE 100 MG CAPSULE PO SCH ×2 (08:43→16:00)
[2021-11-10] MEDS: HEPARIN SODIUM,PORCINE 5,000 UNITS/ML VIAL SQ SCH ×2 (08:43→16:00)
[2021-11-10] MEDS: FOLIC ACID 1 MG TABLET PO SCH (08:43)
[2021-11-10] MEDS: NYSTATIN 500,000 UNITS/5 ML SUSPENSION UDCUP PO SCH ×2 (08:43→16:00)
[2021-11-10] MEDS: THIAMINE 100 MG/ML 2 ML VIAL IVP SCH (08:43)
[2021-11-10] MEDS: NICOTINE 14 MG/24 HOUR PATCH TD SCH (08:43)
[2021-11-10] MEDS: PANTOPRAZOLE SODIUM 40 MG DR TABLET PO SCH (08:44)
[2021-11-10] MEDS: PredniSONE 20 MG TABLET PO SCH (08:44)
[2021-11-10] MEDS: DOCUSATE SODIUM 100 MG CAPSULE PO SCH (08:44)
[2021-11-10] MEDS: GuaiFENesin SR 600 MG ER TABLET PO SCH (08:44)
[2021-11-10 10:55] VITALS: BP 93/60
[2021-11-10 12:00] LABS: COVID AG,FIA SOURCE NASAL SWAB
[2021-11-10 15:01] VITALS: BP 103/74
== END 2021-11-10 19:00 | DRG 190 ==
LOC: EMS 13:01 → 5S 18:11 → ICU 10-30 18:50 → 5S 10-31 17:28
PROVIDERS: ADMIT Internal Medicine; ATTEND Internal Medicine
PROC: 05H933Z Insertion of Infusion Device into Right Brachial Vein, Percutaneous Approach (ICD-10-PCS; principal; 2021-10-26)
PROC: 5A09357 Assistance with Respiratory Ventilation, Less than 24 Consecutive Hours, Continuous Positive Airway Pressure (ICD-10-PCS; 2021-10-29)
PROC: 5A09357 Assistance with Respiratory Ventilation, Less than 24 Consecutive Hours, Continuous Positive Airway Pressure (ICD-10-PCS; 2021-10-30)
DX: J44.1 Chronic obstructive pulmonary disease with (acute) exacerbation (principal); G93.41 Metabolic encephalopathy; E87.0 Hyperosmolality and hypernatremia; E87.1 Hypo-osmolality and hyponatremia; N17.9 Acute kidney failure, unspecified; Z20.822 Contact with and (suspected) exposure to COVID-19; R53.81 Other malaise; D64.9 Anemia, unspecified; F17.200 Nicotine dependence, unspecified, uncomplicated; G47.33 Obstructive sleep apnea (adult) (pediatric); E87.6 Hypokalemia; K74.60 Unspecified cirrhosis of liver; R09.02 Hypoxemia; I10 Essential (primary) hypertension; I48.0 Paroxysmal atrial fibrillation; K76.0 Fatty (change of) liver, not elsewhere classified; R29.6 Repeated falls; Z75.1 Person awaiting admission to adequate facility elsewhere; Z82.49 Family history of ischemic heart disease and other diseases of the circulatory system; Z98.84 Bariatric surgery status; Z88.8 Allergy status to other drugs, medicaments and biological substances
CPT/HCPCS: 36245; 36569; 36600; 70450; 70553; 71045; 76937; 80048; 80053; 81001; 82140; 82805; 82962; 83735; 83880; 84100; 84145; 84439; 84443; 84484; 85025; 87040; 87081; 92610; 93005; 94640; 94644; 94645; 94660; 97110; 97162; 97164; 97167; 97530; 97535; 99285; G0378; J0456; J0696; J1644; J2060; J2920; J2930; J3411; J3480; J3490; J7040; J7050; J7060; Q9967; 36415-L1; 36415-TC; J7512; J7611; J7613; Z7610